=== PATIENT | male | born 1975 | race Caucasian/White ===

== ENCOUNTER 2018-10-08 12:13 | Emergency (ER) | payer OTHER ==
[2018-10-08 12:47] VITALS: BP 124/65; PULSE 93; RESP 18; TEMP 98.2
[2018-10-08] MEDS ORDERED: LIDOCAINE 1% INJ 10MG/ML (20 ML MDV) SQ ONE (13:29)
[2018-10-08] MEDS ORDERED: DIPH,PERTUS(ACELL)TETVAC-LF 0.5 ML VIAL IM ONE (13:29)
--- NOTE | 2018-10-08 13:51 | ED ---
General Adult HPI - General Chief complaint: Head Injury Stated complaint: [facility] - head injury Time Seen by Provider: 10/08/18 13:09 Source: patient, RN notes reviewed, old records reviewed Mode of arrival: ambulatory Limitations: no limitations - History of Present Illness Initial comments: Patient is a 43-year-old male presents for started today with a right eyebrow laceration after a ladder hit his eyebrow is taking off his truck. Patient states this was work-related injury. He denies any loss of consciousness or headache. Patient states that he has no neck pain or injury. He denies any other complaints at this time. His tetanus is not up-to-date. - Related Data Allergies Allergy/AdvReac Type Severity Reaction Status Date / Time No Known Allergies Allergy Verified 10/08/18 12:46 Review of Systems ROS Statement: Those systems with pertinent positive or pertinent negative responses have been documented in the HPI. ROS Other: All systems not noted in ROS Statement are negative. Past Medical History Past Medical History: No Reported History History of Any Multi-Drug Resistant Organisms: None Reported Past Surgical History: No Surgical Hx Reported Past Psychological History: No Psychological Hx Reported Smoking Status: Current every day smoker Past Alcohol Use History: None Reported Past Drug Use History: None Reported General Exam - General Exam Comments Initial Comments: 43-year-old male. Alert and oriented. No significant distress. Limitations: no limitations Head exam: Present: atraumatic, normocephalic, normal inspection Eye exam: Present: normal appearance, PERRL, EOMI. Absent: scleral icterus, conjunctival injection, periorbital swelling ENT exam: Present: normal exam, normal oropharynx, mucous membranes moist, other (She has a 3 cm laceration over the right eyebrow. Extraocular eye movements are intact.) Neck exam: Present: normal inspection. Absent: tenderness, meningismus, lymphadenopathy Respiratory exam: Present: normal lung sounds bilaterally. Absent: respiratory distress, wheezes, rales, rhonchi, stridor Cardiovascular Exam: Present: regular rate, normal rhythm, normal heart sounds. Absent: systolic murmur, diastolic murmur, rubs, gallop, clicks GI/Abdominal exam: Present: soft, normal bowel sounds. Absent: distended, tenderness, guarding, rebound, rigid Extremities exam: Present: normal inspection, full ROM, normal capillary refill. Absent: tenderness, pedal edema, joint swelling, calf tenderness Back exam: Present: normal inspection Neurological exam: Present: alert, oriented X3, CN II-XII intact Psychiatric exam: Present: normal affect, normal mood Skin exam: Present: warm, dry, intact, normal color. Absent: rash Course Vital Signs 10/08/18 12:41 Temperature 98.2 F Pulse Rate 93 Respiratory 18 Rate Blood Pressure 124/65 O2 Sat by Pulse 100 Oximetry Procedures - Laceration Laceration #1 Site: face (Right brow) Size (cm): 3 Description: linear Anesthetic Used: lidocaine 1% Anesthesia Technique: local infiltration Amount (mls): 5 Pre-repair: wound explored, irrigated extensively Type of Sutures: nylon Size of Sutures: 6-0 Number of Sutures: 5 Technique: simple, interrupted Patient Tolerated Procedure: well, no complications Medical Decision Making - Medical Decision Making 43-year-old male presents for is worse today with a laceration over the right eyebrow after a ladder hit him. He is given TD Vaccine. Laceration was closed after thorough irrigation with 5 sutures. Discussed suture care and monitoring for infection.No loss consciousness or no concern for fracture this time. He has no bony tenderness. Patient understands treatment plan will comply. Return parameters were discussed. Disposition Clinical Impression: Eyebrow laceration, Minor head injury Disposition: HOME SELF-CARE Condition: Good Instructions (If sedation given, give patient instructions): Head Injury (ED), Laceration (ED) Additional Instructions: Please return to the emergency room in 5-7 days to have sutures removed. Please leave wound covered for the first 24-48 hours and then leave open to air after that time. Please use clean soap and water to clean the suture area to prevent scabbing over the top of your sutures. Please watch for any signs of infection which may include but not limited to increased pain, swelling, redness, fever or chills. Please return to the emergency room if any signs of infection do occur. Please return to the emergency room for any other concerns or complications. Is patient prescribed a controlled substance at d/c from ED?: No Referrals: Aba Gore MD [Primary Care Provider] - 1-2 days
== END 2018-10-08 14:41 | disposition home or self-care (01) ==
LOC: EC 12:13
DX: S01.111A Laceration without foreign body of right eyelid and periocular area, initial encounter (principal); Z23 Encounter for immunization; F17.200 Nicotine dependence, unspecified, uncomplicated; W22.8XXA Striking against or struck by other objects, initial encounter; Y92.69 Other specified industrial and construction area as the place of occurrence of the external cause; Y99.0 Civilian activity done for income or pay
CPT/HCPCS: 90715; 99283; 12013; 90471; J2001

== ENCOUNTER 2021-03-16 15:24 | Emergency (ER) | payer OTHER ==
[2021-03-16 15:50] VITALS: RESP 20; TEMP 97.8
[2021-03-16] MEDS ORDERED: IBUPROFEN 600 MG TAB PO STA (16:11)
--- NOTE | 2021-03-16 16:19 | ED ---
Upper Extremity HPI - General Chief Complaint: Extremity Injury, Upper Stated Complaint: Hand Injury Time Seen by Provider: 03/16/21 15:52 Source: patient, RN notes reviewed Mode of arrival: ambulatory Limitations: no limitations - History of Present Illness Initial Comments: Patient is a 45-year-old male presenting to the emergency Department with comp laints of injury to his right hand. Patient states a large cement block fell onto his right index finger today at work. He is having some pain at the 2nd MCP joint. He denies any previous injury to his right hand or fingers. He denies any other complaints today. He did not take anything for pain. His vitals are stable. - Related Data Allergies Allergy/AdvReac Type Severity Reaction Status Date / Time No Known Allergies Allergy Verified 03/16/21 15:50 Review of Systems ROS Statement: Those systems with pertinent positive or pertinent negative responses have been documented in the HPI. ROS Other: All systems not noted in ROS Statement are negative. Past Medical History Past Medical History: No Reported History History of Any Multi-Drug Resistant Organisms: None Reported Past Surgical History: No Surgical Hx Reported Past Psychological History: No Psychological Hx Reported Smoking Status: Current every day smoker Past Alcohol Use History: Occasional Past Drug Use History: Marijuana General Exam - General Exam Comments Initial Comments: GENERAL: Patient is well-developed and well-nourished. Patient is nontoxic and in no acute distress. HEAD: Atraumatic, normocephalic. EYES: Pupils equal round and reactive to light, extraocular movements intact, sclera anicteric, conjunctiva are normal. Eyelids were unremarkable. LUNGS: Unlabored respirations. Breath sounds clear to auscultation bilaterally and equal. No wheezes rales or rhonchi. HEART: Regular rate and rhythm without murmurs, rubs or gallops. MUSCULOSKELETAL: Patient has pain and swelling at the second MCP joint, he has limited range of motion secondary to pain. No pain of the right wrist or right proximal hand. He is neurovascular intact. No clubbing or cyanosis. NEUROLOGICAL: Patient is alert and oriented x 3. SKIN: Warm, Dry, normal turgor, no rashes or lesions noted. Limitations: no limitations Course Vital Signs 03/16/21 15:47 Temperature 97.8 F Pulse Rate 76 Respiratory 20 Rate Blood Pressure 134/72 O2 Sat by Pulse 97 Oximetry Medical Decision Making - Medical Decision Making Patient is a 45-year-old male here with injury to his right second digit after a cement block fell onto it. X-rays today reveal no acute fractures or dislocations. Discussed with patient this is most likely a bone contusion. Recommended ice to the area, Tylenol or ibuprofen for any discomfort. He is stable for discharge. If symptoms persist without improvement he can follow-up with orthopedics. He is agreeable to this and is stable for discharge. Disposition Clinical Impression: Contusion of right hand Disposition: HOME SELF-CARE Condition: Stable Instructions (If sedation given, give patient instructions): Contusion in Adults (ED) Additional Instructions: Please return to the Emergency Department if symptoms worsen or any other concerns. Recommend ice to the area, Tylenol or ibuprofen for any discomfort. If symptoms persist without improvement, follow up with your primary care or orthopedics. Is patient prescribed a controlled substance at d/c from ED?: No Referrals: Aba Gore MD [Primary Care Provider] - 1-2 days Time of Disposition: 16:46
--- NOTE | 2021-03-16 16:39 | XR ---
EXAMINATION TYPE: XR hand complete RT DATE OF EXAM: 03/16/2021 COMPARISON: NONE HISTORY: Pain and swelling TECHNIQUE: 3 view FINDINGS: I see no acute fracture nor dislocation. There is some deformity of the fifth metacarpal he ad related to old boxer's fracture. MP joint spaces are fairly normal. Carpal bones are intact. IMPRESSION: No acute abnormality of the right hand.
[2021-03-16 16:57] VITALS: BP 132/74; PULSE 80
== END 2021-03-16 16:56 | disposition home or self-care (01) ==
LOC: EC 15:24
DX: S60.221A Contusion of right hand, initial encounter (principal); F17.200 Nicotine dependence, unspecified, uncomplicated; W20.8XXA Other cause of strike by thrown, projected or falling object, initial encounter; Y99.0 Civilian activity done for income or pay
CPT/HCPCS: 99283

== ENCOUNTER 2022-10-15 15:02 | Inpatient (IN) | payer OTHER ==
[2022-10-15] MEDS ORDERED: ASPIRIN 81 MG PO STA (15:29)
[2022-10-15] MEDS ORDERED: LORazepam 2 MG/ML INJ IV STA (15:29)
--- NOTE | 2022-10-15 15:30 | ED ---
General Adult HPI - General Chief complaint: Chest Pain Stated complaint: CHEST PAINS Time Seen by Provider: 10/15/22 15:15 Source: patient Mode of arrival: ambulatory Limitations: no limitations - History of Present Illness Initial comments: Patient presents to the ED with his for evaluation. Patient states that he developed central chest "pressure" about 1.5 hours ago while at rest. Patient admits to having mild associated dyspnea. Patient also states that he feels "shaky" and his entire body feels "numb". Patient is quite anxious in appea omayra. Patient denies trauma or injury, fever, headache, focal weakness, visual changes, speech difficulty, neck/arm/jaw/back pain, pleuritic pain, cough or cold symptoms, palpitations, dizziness, diaphoresis, nausea/vomiting/diarrhea, bloody or melanotic stool, dysuria or urinary symptoms, decreased urine output, leg or calf swelling or pain, or any other symptoms or complaints. Patient admits to occasional marijuana use. Patient denies any other illicit drug use. - Related Data Home Medications Medication Instructions Recorded Confirmed No Known Home Medications 10/15/22 10/15/22 Allergies Allergy/AdvReac Type Severity Reaction Status Date / Time Penicillins Allergy Rash/Hives Verified 10/15/22 17:52 Review of Systems ROS Statement: Those systems with pertinent positive or pertinent negative responses have been documented in the HPI. ROS Other: All systems not noted in ROS Statement are negative. Past Medical History Past Medical History: No Reported History History of Any Multi-Drug Resistant Organisms: None Reported Past Surgical History: No Surgical Hx Reported Past Psychological History: No Psychological Hx Reported Smoking Status: Current every day smoker Past Alcohol Use History: Occasional Past Drug Use History: Marijuana General Exam Limitations: no limitations General appearance: alert, in no apparent distress Head exam: Present: atraumatic, normocephalic Eye exam: Present: normal appearance, PERRL, EOMI ENT exam: Present: mucous membranes moist Neck exam: Present: other (Trachea is in midline). Absent: tenderness Respiratory exam: Present: normal lung sounds bilaterally. Absent: respiratory distress, wheezes, rales, rhonchi, stridor, chest wall tenderness Cardiovascular Exam: Present: regular rate, normal rhythm, normal heart sounds, other (Normal radial pulses bilaterally) GI/Abdominal exam: Present: soft. Absent: distended, tenderness, guarding Extremities exam: Present: other (Negative Homans sign bilaterally). Absent: tenderness, pedal edema, calf tenderness Back exam: Absent: tenderness Neurological exam: Present: alert, oriented X3, CN II-XII intact. Absent: motor sensory deficit Psychiatric exam: Present: anxious Skin exam: Present: warm, dry, intact, normal color Course Vital Signs 10/15/22 10/15/22 10/15/22 15:04 16:06 17:00 Temperature 97.5 F L Pulse Rate 73 62 57 L Respiratory 20 18 18 Rate Blood Pressure 159/85 153/92 149/86 O2 Sat by Pulse 99 97 99 Oximetry 10/15/22 18:32 Temperature Pulse Rate 52 L Respiratory 18 Rate Blood Pressure 136/82 O2 Sat by Pulse 98 Oximetry - Reevaluation(s) Reevaluation #1: 10/15/22 17:37 Patient states that his chest pain/symptoms have currently resolved, and he denies development of any new symptoms while in the ED. Patient remains alert and breathing comfortably with a normal room air oxygen saturation. Patient and are aware the patient's test results thus far. Patient agrees with obtaining a 2-hour troponin at this time. 10/15/22 18:27 Case, H&P, test results and ED management thus far were discussed with Dr. Watkins (interventional cardiology). He agrees with plan to admit the patient to the hospital, and he agrees to see the patient in consultation. He has no further recommendations at this time. 10/15/22 18:39 Case, H&P, test results, ED management thus far and my discussion with Dr. Watkins as above were discussed with Dr. Badillo. She accepts hospital admission. She has no further recommendations at this time. 10/15/22 18:42 Patient continues to deny having any chest pain/symptoms. Patient remains alert and breathing comfortably with a normal room air oxygen saturation. Patient and are aware the patient's test results, 2-hour troponin level and my discussions as above. Patient agrees with hospital admission at this time. EKG Findings - EKG Comments: EKG Findings:: ED physician interpretation: Normal sinus rhythm, ventricular rate of 68 bpm, no ectopy, normal OH and QRS intervals, normal QT interval, normal axis, no ST or T-wave abnormality Medical Decision Making - Medical Decision Making Was pt. sent in by a medical professional or institution (, [facility], [facility], urgent care, hospital, or [facility]...) When possible be specific @ -No Did you speak to anyone other than the patient for history (EMS, parent, family, police, friend...)? What history was obtained from this source @ -No Did you review nursing and triage notes (agree or disagree)? Why? @ -I reviewed and agree with nursing and triage notes Were old charts reviewed (outside hosp., previous admission, EMS record, old EKG, old radiological studies, urgent care reports/EKG's, [facility] records)? Report findings @ -No old charts were reviewed Differential Diagnosis (chest pain, altered mental status, abdominal pain women, abdominal pain men, vaginal bleeding, weakness, fever, dyspnea, syncope, headache, dizziness, GI bleed, back pain, seizure, CVA, palpatations, mental health, musculoskeletal)? @ -Differential Chest Pain: Stable Angina, Unstable Angina, STEMI, NSTEMI, Aortic Dissection, Pneumothorax, Musculoskeletal, Esophageal Spasm, GERD, pulmonary embolism, this is not meant to be an all-inclusive list. EKG interpreted by me (3pts min.). @ -As above X-rays interpreted by me (1pt min.). @ -I reviewed the patient's chest x-ray myself, and I agree with the radiologist's interpretation as above. CT interpreted by me (1pt min.). @ -None done U/S interpreted by me (1pt. min.). @ -None done What testing was considered but not performed or refused? (CT, X-rays, U/S, labs)? Why? @ -None What meds were considered but not given or refused? Why? @ -None Did you discuss the management of the patient with other professionals (professionals i.e. [facility] Thayer, [facility], lab, RT, psych nurse, child welfare social worker, correctional security officer, teacher, housing officer, onsite case manager)? Give summary @ -As above. Was smoking cessation discussed for >3mins.? @ -No Was critical care preformed (if so, how long)? @ -Yes, 30 minutes. Were there social determinants of health that impacted care today? How? (Homelessness, low income, unemployed, alcoholism, drug addiction, tra nsportation, low edu. Level, literacy, decrease access to med. care, senior living, rehab)? @ -No Was there de-escalation of care discussed even if they declined (Discuss DNR or withdrawal of care, Hospice)? DNR status @ -No What co-morbidities impacted this encounter? (DM, HTN, Smoking, COPD, CAD, Cancer, CVA, ARF, Chemo, Hep., AIDS, mental health diagnosis, sleep apnea, morbid obesity)? @ -Smoking Was patient admitted / discharged? Hospital course, mention meds given and route, prescriptions, significant lab abnormalities, going to OR and other pertinent info. @ -Patient's chest pain/symptoms have improved with administration of IV Ativan in the ED. Patient is no longer anxious/uncomfortable in appearance, and he states that his chest pain/symptoms have completely resolved. Patient's EKG, chest x-ray and initial labs are all fairly unremarkable, including a negative d-dimer and negative troponin. Patient's two-hour troponin, however, is elevated. IV heparin drip has been initiated. Patient and are aware the patient's test results, and patient agrees with hospital admission at this time. Cardiology has been consulted. Dr. Badillo has accepted hospital admission. Undiagnosed new problem with uncertain prognosis? @ -No Drug Therapy requiring intensive monitoring for toxicity (Heparin, Nitro, Insulin, Cardizem)? @ -No Were any procedures done? @ -No Diagnosis/symptom? @ -Chest pain, NSTEMI Acute, or Chronic, or Acute on Chronic? @ -Acute Uncomplicated (without systemic symptoms) or Complicated (systemic symptoms)? @ -Complicated Side effects of treatment? @ -No Exacerbation, Progression, or Severe Exacerbation? @ -No Poses a threat to life or bodily function? How? (Chest pain, USA, PA, pneumonia, PE, COPD, DKA, ARF, appy, cholecystitis, CVA, Diverticulitis, Homicidal, Suicidal, threat to staff... and all critical care pts) @ -There is potential for a threat to life if the patient's myocardial infarction propagates other the patient develops a dysrhythmia. - Lab Data Result diagrams: 10/15/22 15:35 10/15/22 15:35 Lab Results 10/15/22 10/15/22 10/15/22 Range/Units 15:35 15:35 15:35 WBC 8.7 (3.8-10.6) k/uL RBC 4.94 (4.30-5.90) m/uL Hgb 16.6 (13.0-17.5) gm/dL Hct 49.5 (39.0-53.0) % MCV 100.2 H (80.0-100.0) fL MCH 33.5 (25.0-35.0) pg MCHC 33.4 (31.0-37.0) g/dL RDW 13.5 (11.5-15.5) % Plt Count 252 (150-450) k/uL MPV 8.1 Neutrophils % 60 % Lymphocytes % 30 % Monocytes % 7 % Eosinophils % 1 % Basophils % 0 % Neutrophils # 5.2 (1.3-7.7) k/uL Lymphocytes # 2.6 (1.0-4.8) k/uL Monocytes # 0.6 (0-1.0) k/uL Eosinophils # 0.1 (0-0.7) k/uL Basophils # 0.0 (0-0.2) k/uL PT 10.4 (9.0-12.0) sec INR 1.0 (<1.2) APTT 24.6 (22.0-30.0) sec D-Dimer 0.19 (<0.60) mg/L FEU Sodium 141 (137-145) mmol/L Potassium 3.9 (3.5-5.1) mmol/L Chloride 105 (98-107) mmol/L Carbon Dioxide 27 (22-30) mmol/L Anion Gap 9 mmol/L BUN 13 (9-20) mg/dL Creatinine 0.84 (0.66-1.25) mg/dL Est GFR (CKD-EPI)AfAm >90 (>60 ml/min/1.73 sqM) Est GFR (CKD-EPI)NonAf >90 (>60 ml/min/1.73 sqM) Glucose 139 H (74-99) mg/dL Calcium 8.9 (8.4-10.2) mg/dL Magnesium 2.1 (1.6-2.3) mg/dL Total Bilirubin 0.6 (0.2-1.3) mg/dL AST 33 (17-59) U/L ALT 24 (4-49) U/L Alkaline Phosphatase 71 (38-126) U/L Troponin I (0.000-0.034) ng/mL NT-Pro-B Natriuret Pep pg/mL Total Protein 6.8 (6.3-8.2) g/dL Albumin 4.2 (3.5-5.0) g/dL 10/15/22 10/15/22 10/15/22 Range/Units 15:35 15:35 17:42 WBC (3.8-10.6) k/uL RBC (4.30-5.90) m/uL Hgb (13.0-17.5) gm/dL Hct (39.0-53.0) % MCV (80.0-100.0) fL MCH (25.0-35.0) pg MCHC (31.0-37.0) g/dL RDW (11.5-15.5) % Plt Count (150-450) k/uL MPV Neutrophils % % Lymphocytes % % Monocytes % % Eosinophils % % Basophils % % Neutrophils # (1.3-7.7) k/uL Lymphocytes # (1.0-4.8) k/uL Monocytes # (0-1.0) k/uL Eosinophils # (0-0.7) k/uL Basophils # (0-0.2) k/uL PT (9.0-12.0) sec INR (<1.2) APTT (22.0-30.0) sec D-Dimer (<0.60) mg/L FEU Sodium (137-145) mmol/L Potassium (3.5-5.1) mmol/L Chloride (98-107) mmol/L Carbon Dioxide (22-30) mmol/L Anion Gap mmol/L BUN (9-20) mg/dL Creatinine (0.66-1.25) mg/dL Est GFR (CKD-EPI)AfAm (>60 ml/min/1.73 sqM) Est GFR (CKD-EPI)NonAf (>60 ml/min/1.73 sqM) Glucose (74-99) mg/dL Calcium (8.4-10.2) mg/dL Magnesium (1.6-2.3) mg/dL Total Bilirubin (0.2-1.3) mg/dL AST (17-59) U/L ALT (4-49) U/L Alkaline Phosphatase (38-126) U/L Troponin I <0.012 0.394 H* (0.000-0.034) ng/mL NT-Pro-B Natriuret Pep 850 pg/mL Total Protein (6.3-8.2) g/dL Albumin (3.5-5.0) g/dL - Radiology Data Chest x-ray: No acute cardiopulmonary disease/process. Critical Care Time Critical Care Time: Yes Total Critical Care Time: 30 Disposition Clinical Impression: Chest pain, Acute non-ST elevation myocardial infarction (NSTEMI) Disposition: ADMITTED IP TO THIS HOSP Condition: Stable Is patient prescribed a controlled substance at d/c from ED?: No Time of Disposition: 18:40
--- NOTE | 2022-10-15 15:53 | XR ---
EXAMINATION TYPE: XR chest 2V DATE OF EXAM: 10/15/2022 3:42 PM COMPARISON: None TECHNIQUE: XR chest 2V Frontal and lateral views of the chest. CLINICAL INDICATION:Male, 47 years old with history of Chest Pain; FINDINGS: Lungs/Pleura: There is no evidence of pleural effusion, focal consolidation, or pneumothorax. Pulmonary vascularity: Unremarkable. Heart/mediastinum: Cardiomediastinal silhouette is unremarkable. Musculoskeletal: No acute osseous pathology. IMPRESSION: No acute cardiopulmonary disease/process.
[2022-10-15 15:54] LABS: ALT 24 U/L (4-49); AST 33 U/L (17-59); African American GFR (CKD) >90 (>60 ml/min/1.73 sqM); Albumin 4.2 g/dL (3.5-5.0); Alkaline Phosphatase 71 U/L (38-126); Anion Gap 9 mmol/L; Blood Urea Nitrogen 13 mg/dL (9-20); Calcium 8.9 mg/dL (8.4-10.2); Carbon Dioxide 27 mmol/L (22-30); Chloride 105 mmol/L (98-107); Glucose 139 mg/dL (74-99); Magnesium 2.1 mg/dL (1.6-2.3); Non-African American GFR(CKD) >90 (>60 ml/min/1.73 sqM); Potassium 3.9 mmol/L (3.5-5.1); Sodium 141 mmol/L (137-145); Total Bilirubin 0.6 mg/dL (0.2-1.3); Total Protein 6.8 g/dL (6.3-8.2)
[2022-10-15 15:56] LABS: Partial Thromboplastin Time 24.6 sec (22.0-30.0); Prothrombin Time 10.4 sec (9.0-12.0)
[2022-10-15 16:23] LABS: Basophils % (A) 0 %; Eosinophils # (A) 0.1 k/uL (0-0.7); Eosinophils % (A) 1 %; HCT 49.5 % (39.0-53.0); HGB 16.6 gm/dL (13.0-17.5); Lymphocytes # (A) 2.6 k/uL (1.0-4.8); Lymphocytes % (A) 30 %; MCH 33.5 pg (25.0-35.0); MCHC 33.4 g/dL (31.0-37.0); MCV 100.2 fL (80.0-100.0); Mean Platelet Volume 8.1; Monocytes # (A) 0.6 k/uL (0-1.0); Monocytes % (A) 7 %; Neutrophils # (A) 5.2 k/uL (1.3-7.7); Neutrophils % (A) 60 %; Platelet Count 252 k/uL (150-450); RBC 4.94 m/uL (4.30-5.90); RDW 13.5 % (11.5-15.5); WBC 8.7 k/uL (3.8-10.6)
[2022-10-15] MEDS ORDERED: HEPARIN SODIUM 1,000 UN/ML (10ML VL) IV ONE (18:26)
[2022-10-15] MEDS ORDERED: HEPARIN SODIUM 1,000 UN/ML (10ML VL) IV PRN (18:26)
[2022-10-15] MEDS ORDERED: HEPARIN SOD,PORK IN 0.45% NACL 25,000 UNIT in 0.45% NACL 1 250ML.BAG IV SCH (18:30)
[2022-10-15 20:10] LABS: Basophils % (A) 0 %; Eosinophils # (A) 0.1 k/uL (0-0.7); Eosinophils % (A) 1 %; HCT 47.7 % (39.0-53.0); HGB 15.6 gm/dL (13.0-17.5); Lymphocytes # (A) 2.6 k/uL (1.0-4.8); Lymphocytes % (A) 32 %; MCH 33.2 pg (25.0-35.0); MCHC 32.7 g/dL (31.0-37.0); MCV 101.6 fL (80.0-100.0); Mean Platelet Volume 7.5; Monocytes # (A) 0.5 k/uL (0-1.0); Monocytes % (A) 6 %; Neutrophils # (A) 4.7 k/uL (1.3-7.7); Neutrophils % (A) 58 %; Platelet Count 236 k/uL (150-450); RBC 4.69 m/uL (4.30-5.90)
[2022-10-15 20:43] LABS: Prothrombin Time 10.9 sec (9.0-12.0)
[2022-10-15] MEDS ORDERED: NITROGLYCERIN-D5W PMX 50 MG in DEXTROSE/WATER 1 250ML.BAG IV SCH (21:15)
[2022-10-15 21:21] LABS: Partial Thromboplastin Time 123.3 sec (22.0-30.0)
[2022-10-15] MEDS ORDERED: MORPHINE SULFATE 2 MG/ML SYRINGE IVP PRN (21:36)
[2022-10-15] MEDS: ATORVASTATIN 40 MG TAB PO SCH (21:48)
[2022-10-15] MEDS ORDERED: MORPHINE SULFATE 4 MG/ML SYRINGE IVP STA (22:08)
[2022-10-15] MEDS: NITROGLYCERIN-D5W PMX 50 MG in DEXTROSE/WATER 1 250ML.BAG IV SCH (22:15)
[2022-10-15 23:17] LABS: Glucose,Whole Blood 99 mg/dL (70-110)
[2022-10-15 23:42] LABS: Amphetamine Screen,Urine Not Detected (NotDetected); Barbiturate Screen,Urine Not Detected (NotDetected); Benzodiazepines Screen,Urine Detected (NotDetected); Cocaine Screen,Urine Not Detected (NotDetected); Methadone Screen, Urine Not Detected (NotDetected); Opiate Screen,Urine Detected (NotDetected); Oxycodone Screen, Urine Not Detected (NotDetected); Phencyclidine Screen,Urine Not Detected (NotDetected); Tricyclic Antidepressant,Urine Not Detected (NotDetected); Urn Cannabinoid Scrn Detected (NotDetected)
[2022-10-16] MEDS ORDERED: LORazepam 1 MG TAB PO PRN (00:11)
[2022-10-16] MEDS: SODIUM CHLORIDE 0.9% 1,000 ML IV SCH ×2 (00:18→13:37)
--- NOTE | 2022-10-16 00:24 | P.HPIM ---
History of Present Illness H&P Date: 10/15/22 Chief Complaint: chest pain 47 year old male denies any significant past medical history patient coming in for evaluation due to sudden onset of central chest pain , pressure like , 8/10 in severity , non radiating, associated with shortness of breath , started while watching tv doing nothing, he did not take anything for it at home, tried to rest and relax with no improvement ,and his called EMS to get to the ED for evaluation . he denies any associated Palpitation, profuse sweating, dizziness, nausea or vomiting, no recent viral illness, no recent travel or hospital stay , denies any history of blood clots . patient denies any history of cardiac disease, denies any family history of premature CAD. 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 Review of Systems Pertinent positives as noted in HPI. All other systems were reviewed and are negative Past Medical History Past Medical History: No Reported History History of Any Multi-Drug Resistant Organisms: None Reported Past Surgical History: No Surgical Hx Reported Past Psychological History: No Psychological Hx Reported Smoking Status: Current every day smoker Past Alcohol Use History: Occasional Past Drug Use History: Marijuana Medications and Allergies Home Medications Medication Instructions Recorded Confirmed Type No Known Home Medications 10/15/22 10/15/22 History Allergies Allergy/AdvReac Type Severity Reaction Status Date / Time Penicillins Allergy Rash/Hives Verified 10/15/22 17:52 Physical Exam Vitals: Vital Signs Temp Pulse Pulse Resp BP BP Pulse Ox 10/16/22 00:00 56 L 10 L 109/72 95 10/15/22 23:45 98.0 F 65 22 113/77 93 L 10/15/22 23:30 80 19 112/77 91 L 10/15/22 22:53 113/71 10/15/22 22:45 127/73 10/15/22 22:37 108/63 10/15/22 22:34 117/73 10/15/22 22:29 117/73 10/15/22 22:25 109/69 10/15/22 22:17 112/72 10/15/22 22:00 123/74 10/15/22 21:59 122/72 10/15/22 21:50 127/79 10/15/22 21:45 127/75 10/15/22 21:40 132/80 10/15/22 21:34 137/82 10/15/22 21:33 136/77 10/15/22 21:22 51 L 14 128/81 98 10/15/22 19:54 98.5 F 56 L 14 150/89 97 10/15/22 19:23 97.9 F 56 L 18 98 10/15/22 18:32 52 L 18 136/82 98 10/15/22 17:00 57 L 18 149/86 99 10/15/22 16:06 62 18 153/92 97 10/15/22 15:04 97.5 F L 73 20 159/85 99 Intake and Output 10/15/22 10/15/22 10/16/22 14:59 22:59 06:59 Intake Total 39.865 Balance 39.865 Intake: Intake, IV Titration 39.865 Amount Heparin Sod,Pork in 0.45% 39.865 NaCl 25,000 unit In 0.45 % NaCl 1 250ml.bag @ 12 UNITS/KG/HR 9.417 mls/hr IV .Q24H [facility] Rx#: [id number] Other: Voiding Method Urinal Urinal Weight 78.471 kg Constitutional: No acute distress, conversant, pleasant Eyes: Anicteric sclerae, moist conjunctiva, Pupils equal round reactive to light ENMT: NC/AT Oropharynx clear, no erythema, or exudates Neck: Supple, no masses, or JVD No carotid bruits No thyromegaly Lungs: Clear to auscultation Clear to percussion Normal respiratory effort, no accessory muscle use Cardiovascular: Heart regular in rate and rhythm, No murmurs, gallops, or rubs No peripheral edema Abdominal: Soft No tenderness to deep palpation no guarding, rebound or rigidity Abdomen moving with respiration Normoactive bowel sounds No hepatomegaly, No splenomegaly No palpable mass No abdominal wall hernia noted Skin: Normal temperature, tone, texture, turgor No induration No subcutaneous nodules No rash, lesions No ulcers Extremities: No digital cyanosis No clubbing Pedal pulses intact and symmetrical Radial pulses intact and symmetrical No calf tenderness Psychiatric: Alert and oriented to person, place and time Appropriate affect fair judgement Neuro Muscles Strength 5/5 in all 4 extremities Sensation to light touch grossly present throughout Cranial nerves II-XII grossly intact Lymphatics: no palpable cervical or supraclavicular lymph nodes Results CBC & Chem 7: 10/15/22 19:52 10/15/22 15:35 Labs: Abnormal Lab Results - Last 24 Hours (Table) 10/15/22 10/15/22 10/15/22 Range/Units 15:35 15:35 17:42 MCV 100.2 H (80.0-100.0) fL APTT (22.0-30.0) sec Glucose 139 H (74-99) mg/dL Troponin I 0.394 H* (0.000-0.034) ng/mL Urine Opiates Screen (NotDetected) U Benzodiazepines Scrn (NotDetected) U Marijuana (THC) Screen (NotDetected) 10/15/22 10/15/22 10/15/22 Range/Units 19:52 19:52 19:52 MCV 101.6 H (80.0-100.0) fL APTT 123.3 H* (22.0-30.0) sec Glucose (74-99) mg/dL Troponin I 2.090 H* (0.000-0.034) ng/mL Urine Opiates Screen (NotDetected) U Benzodiazepines Scrn (NotDetected) U Marijuana (THC) Screen (NotDetected) 10/15/22 Range/Units 22:54 MCV (80.0-100.0) fL APTT (22.0-30.0) sec Glucose (74-99) mg/dL Troponin I (0.000-0.034) ng/mL Urine Opiates Screen Detected H (NotDetected) U Benzodiazepines Scrn Detected H (NotDetected) U Marijuana (THC) Screen Detected H (NotDetected) Thrombosis Risk Factor Assmnt - Choose All That Apply Any of the Below Risk Factors Present?: Yes Each Factor Represents 1 point: Age 41-60 years, Obesity (BMI >25) Other Risk Factors: No Other congenital or acquired thrombophilia - If yes, enter type in comment: No Thrombosis Risk Factor Assessment Total Risk Factor Score: 2 Thrombosis Risk Factor Assessment Level: Low Risk Assessment and Plan Assessment: 47 year old male smoker, coming in with chest pain , I discussed the case with ED doc, and I accepted the admission for NSTEMI for further cardiac workup and management , with anticipated length of stay > 2 midnights NSTEMI cardiology consult heparin gtt per ACS protocol nitro drip to control chest pain aspirin 325 , then 81 mg daily po atorvastatin 40 mg qhs trend trops , trending up 0.012 --> 0.39 morphine PRN ivp 2 mg q4hrs for chest pain EKG no acute ST changes check lipid profile , A1c, 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
[2022-10-16] MEDS ORDERED: ACETAMINOPHEN TAB 325 MG TAB PO PRN (03:25)
[2022-10-16 04:29] LABS: Basophils % (A) 0 %; Eosinophils # (A) 0.1 k/uL (0-0.7); Eosinophils % (A) 2 %; HCT 43.3 % (39.0-53.0); HGB 14.1 gm/dL (13.0-17.5); Lymphocytes # (A) 2.4 k/uL (1.0-4.8); Lymphocytes % (A) 40 %; MCH 33.3 pg (25.0-35.0); MCHC 32.5 g/dL (31.0-37.0); MCV 102.5 fL (80.0-100.0); Macrocytosis Slight; Mean Platelet Volume 7.5; Monocytes # (A) 0.4 k/uL (0-1.0); Monocytes % (A) 7 %; Neutrophils # (A) 2.9 k/uL (1.3-7.7); Neutrophils % (A) 49 %; Platelet Count 222 k/uL (150-450); RBC 4.22 m/uL (4.30-5.90); RDW 13.1 % (11.5-15.5); WBC 5.9 k/uL (3.8-10.6)
[2022-10-16 04:54] LABS: Partial Thromboplastin Time 48.8 sec (22.0-30.0)
[2022-10-16 05:00] LABS: ALT 21 U/L (4-49); AST 52 U/L (17-59); African American GFR (CKD) >90 (>60 ml/min/1.73 sqM); Alkaline Phosphatase 59 U/L (38-126); Anion Gap 6 mmol/L; Blood Urea Nitrogen 12 mg/dL (9-20); Calcium 7.8 mg/dL (8.4-10.2); Carbon Dioxide 24 mmol/L (22-30); Chloride 109 mmol/L (98-107); Glucose 97 mg/dL (74-99); Non-African American GFR(CKD) >90 (>60 ml/min/1.73 sqM); Potassium 3.4 mmol/L (3.5-5.1); Sodium 139 mmol/L (137-145); Total Bilirubin 0.7 mg/dL (0.2-1.3); Total Protein 5.3 g/dL (6.3-8.2)
[2022-10-16] MEDS ORDERED: Potassium Replacement Protocol 1 EACH MISC MISCELLANE PRN (05:03)
[2022-10-16] MEDS: POTASSIUM CHLORIDE ER 20 MEQ TAB.ER PO SCH ×2 (06:15→07:23)
[2022-10-16] MEDS: ASPIRIN 81 MG PO SCH (08:09)
[2022-10-16 10:47] LABS: Chol/HDL Ratio 2.83 Ratio; LDL Cholesterol,Calculated 77.7 mg/dL (0.0-131.0); VLDL Calculation 14.14 mg/dL (5.00-40.00)
--- NOTE | 2022-10-16 10:55 | P.CRDCN ---
History of Present Illness History of present illness: HISTORY OF PRESENTING ILLNESS This is a pleasant 47-year-old with past medical history significant for tobacco abuse, questionable hyperlipidemia. Patient presented with acute onset of righ t-sided chest pain radiating to his right arm which occurred when he was sitting in his chair watching TV. Pain persisted and therefore presented to the ER. Patient was found to have initially minimally elevated troponins and was given nitro. Per report pain had improved however later talking with the nurse was noted to still be having minimal 1-2 out of 10 chest pain with continued elevated troponins. Therefore he was started on nitro drip glycerin drip as well as given morphine with complete resolution of chest pain. He denies any shortness breath. Denies any recent fevers, chills, cough. He does smoke a pack per day. Occasional marijuana. No cocaine. No family history of CAD. E KG shows sinus rhythm, normal axis, no significant ST or T wave abnormalities. REVIEW OF SYSTEMS At the time of my exam: CONSTITUTIONAL: Denies fever or chills. CARDIOVASCULAR: +chest pain, no shortness of breath, orthopnea, PND or palpitations. RESPIRATORY: Denies cough. GASTROINTESTINAL: Denies abdominal pain, diarrhea, constipation, nausea or vomiting. MUSCULOSKELETAL: Denies myalgias. NEUROLOGIC: Denies numbness, tingling or weakness. ENDOCRINE: Denies fatigue, weight change, polydipsia or polyurina. GENITOURINARY: Denies burning, hematuria or urgency with micturation. HEMATOLOGIC: Denies history of anemia or bleeding. PHYSICAL EXAMINATION Vital signs reviewed. CONSTITUTIONAL: No apparent distress. HEENT: Head is normocephalic. Pupils are equal, round. Sclerae anicteric. Mucous membranes of the mouth are moist. No JVD. No carotid bruit. CHEST EXAMINATION: Lungs are clear to auscultation. No chest wall tenderness is noted on palpation or with deep breathing. HEART EXAMINATION: Regular rate and rhythm. S1, S2 heard. No murmurs, gallops or rub. ABDOMEN: Soft, nontender. Positive bowel sounds. EXTREMITIES: 2+ peripheral pulses, no lower extremity edema and no calf tenderness. NEUROLOGIC EXAMINATION: Patient is awake, alert and oriented x3. ASSESSMENT Non-STEMI, likely type I mechanism Tobacco abuse Occasional marijuana use PLAN Continue heparin drip as well as nitroglycerin with patient currently chest pain-free. Check 2-D echo. Discussed risks and benefits of heart catheterization patient is agreeable. Heart catheterization today with likely PCI if significant disease. Past Medical History Past Medical History: No Reported History History of Any Multi-Drug Resistant Organisms: None Reported Past Surgical History: No Surgical Hx Reported Past Psychological History: No Psychological Hx Reported Smoking Status: Current every day smoker Past Alcohol Use History: Occasional Past Drug Use History: Marijuana Medications and Allergies Home Medications Medication Instructions Recorded Confirmed Type No Known Home Medications 10/15/22 10/15/22 History Allergies Allergy/AdvReac Type Severity Reaction Status Date / Time Penicillins Allergy Rash/Hives Verified 10/15/22 17:52 Physical Exam Vitals: Vital Signs Temp Pulse Pulse Resp BP BP Pulse Ox 10/16/22 09:00 56 L 16 94/64 93 L 10/16/22 08:30 48 L 19 104/67 95 10/16/22 08:00 98.2 F 52 L 13 103/68 96 10/16/22 07:30 48 L 12 95/61 96 10/16/22 07:00 46 L 12 101/65 10/16/22 06:30 43 L 9 L 98/69 95 10/16/22 06:00 51 L 15 100/65 91 L 10/16/22 05:30 54 L 14 109/69 92 L 10/16/22 05:00 52 L 16 111/77 94 L 10/16/22 04:30 49 L 106/67 92 L 10/16/22 04:00 97.6 F 50 L 14 103/62 94 L 10/16/22 03:30 49 L 101/64 93 L 10/16/22 03:00 53 L 15 99/67 92 L 10/16/22 02:30 52 L 13 98/68 94 L 10/16/22 02:00 52 L 102/70 93 L 10/16/22 01:30 50 L 16 106/69 93 L 10/16/22 01:15 73 17 106/72 94 L 10/16/22 01:00 54 L 103/69 97 10/16/22 00:45 56 L 103/73 95 10/16/22 00:30 57 L 16 105/73 94 L 10/16/22 00:15 56 L 13 108/77 95 10/16/22 00:00 56 L 10 L 109/72 95 10/15/22 23:45 98.0 F 65 22 113/77 93 L 10/15/22 23:30 80 19 112/77 91 L 10/15/22 22:53 113/71 10/15/22 22:45 127/73 10/15/22 22:37 108/63 10/15/22 22:34 117/73 10/15/22 22:29 117/73 10/15/22 22:25 109/69 10/15/22 22:17 112/72 10/15/22 22:00 123/74 10/15/22 21:59 122/72 10/15/22 21:50 127/79 10/15/22 21:45 127/75 10/15/22 21:40 132/80 10/15/22 21:34 137/82 10/15/22 21:33 136/77 10/15/22 21:22 51 L 14 128/81 98 10/15/22 19:54 98.5 F 56 L 14 150/89 97 10/15/22 19:23 97.9 F 56 L 18 98 10/15/22 18:32 52 L 18 136/82 98 10/15/22 17:00 57 L 18 149/86 99 10/15/22 16:06 62 18 153/92 97 10/15/22 15:04 97.5 F L 73 20 159/85 99 Intake and Output 10/15/22 10/16/22 10/16/22 22:59 06:59 14:59 Intake Total 39.865 525 377.60 Output Total 150 0 Balance 39.865 375 377.60 Intake: Intake, IV Titration 39.865 525 377.60 Amount Heparin Sod,Pork in 0.45% 39.865 NaCl 25,000 unit In 0.45 % NaCl 1 250ml.bag @ 12 UNITS/KG/HR 9.417 mls/hr IV .Q24H [facility] Rx#: [id number] Nitroglycerin-D5w Pmx 50 152.60 mg In Dextrose/Water 1 250ml.bag @ 50 MCG/MIN 15 mls/hr IV .[id number] [facility] Rx#:[id number] Sodium Chloride 0.9% 1, 525 225 000 ml @ 75 mls/hr IV . [id number] [facility] Rx#:[id number] Oral 0 Output: Urine 150 0 Other: Voiding Method Urinal Urinal Urinal # Voids 1 # Bowel Movements 1 Weight 78.471 kg 74.3 kg Results 10/16/22 04:07 10/16/22 04:07 Cardiac Enzymes 10/15/22 10/15/22 10/15/22 Range/Units 15:35 15:35 17:42 AST 33 (17-59) U/L Troponin I <0.012 0.394 H* (0.000-0.034) ng/mL 10/15/22 10/15/22 10/16/22 Range/Units 19:52 23:15 04:07 AST (17-59) U/L Troponin I 2.090 H* 4.300 H* 5.160 H* (0.000-0.034) ng/mL 10/16/22 Range/Units 04:07 AST 52 (17-59) U/L Troponin I (0.000-0.034) ng/mL Coagulation 10/15/22 10/15/22 10/16/22 Range/Units 15:35 19:52 04:07 PT 10.4 10.9 11.0 (9.0-12.0) sec APTT 24.6 123.3 H* 48.8 H (22.0-30.0) sec Lipids 10/16/22 Range/Units 04:07 Triglycerides 70.70 (0.00-149.00) mg/dL Cholesterol 142.00 (0.00-200.00) mg/dL HDL Cholesterol 50.20 (40.00-60.00) mg/dL Cholesterol/HDL Ratio 2.83 Ratio CBC 10/15/22 10/15/22 10/16/22 Range/Units 15:35 19:52 04:07 WBC 8.7 8.0 5.9 (3.8-10.6) k/uL RBC 4.94 4.69 4.22 L (4.30-5.90) m/uL Hgb 16.6 15.6 14.1 (13.0-17.5) gm/dL Hct 49.5 47.7 43.3 (39.0-53.0) % Plt Count 252 236 222 (150-450) k/uL Comprehensive Metabolic Panel 10/15/22 10/16/22 Range/Units 15:35 04:07 Sodium 141 139 (137-145) mmol/L Potassium 3.9 3.4 L (3.5-5.1) mmol/L Chloride 105 109 H (98-107) mmol/L Carbon Dioxide 27 24 (22-30) mmol/L BUN 13 12 (9-20) mg/dL Creatinine 0.84 0.73 (0.66-1.25) mg/dL Glucose 139 H 97 (74-99) mg/dL Calcium 8.9 7.8 L (8.4-10.2) mg/dL AST 33 52 (17-59) U/L ALT 24 21 (4-49) U/L Alkaline Phosphatase 71 59 (38-126) U/L Total Protein 6.8 5.3 L (6.3-8.2) g/dL Albumin 4.2 3.0 L (3.5-5.0) g/dL Current Medications Generic Name Dose Route Start Last Admin Trade Name Freq PRN Reason Stop Dose Admin Acetaminophen 650 mg 10/16/22 03:25 10/16/22 06:15 Acetaminophen Tab 325 Mg Tab PO 650 mg Q6HR PRN Administration Fever and/ or Pain Aspirin 81 mg 10/16/22 09:00 10/16/22 08:09 Aspirin 81 Mg PO 81 mg DAILY [facility] Administration Atorvastatin Calcium 40 mg 10/15/22 21:45 10/15/22 21:48 Atorvastatin 40 Mg Tab PO 40 mg HS [facility] Administration Heparin Sodium (Porcine) 0 unit 10/15/22 18:26 Heparin Sodium 1,000 Un/Ml (10ml Vl) IV PER PROTOCOL PRN Low PTT Protocol Heparin Sodium/Sodium Chloride 250 mls @ 9.417 mls/hr 10/15/22 18:30 10/15/22 22:48 25,000 unit/ Sodium Chloride IV 9 units/kg/hr .Q24H [facility] 7.062 mls/hr Titration Protocol 12 UNITS/KG/HR Nitroglycerin/Dextrose 50 mg/ 250 mls @ 9 mls/hr 10/15/22 21:15 10/15/22 21:29 IV Solution IV 30 mcg/min .Q24H [facility] 9 mls/hr Administration Protocol 30 MCG/MIN Nitroglycerin/Dextrose 50 mg/ 250 mls @ 15 mls/hr 10/15/22 22:15 10/16/22 08:32 IV Solution IV 50 mcg/min .[id number] [facility] 15 mls/hr Titration Protocol 50 MCG/MIN Sodium Chloride 1,000 mls @ 75 mls/hr 10/16/22 00:15 10/16/22 00:18 Saline 0.9% IV 75 mls/hr .[id number] [facility] Administration Lorazepam 1 mg 10/16/22 00:11 Lorazepam 1 Mg Tab PO Q8HR PRN Agitation or Acute Anxiety Miscellaneous Information 1 each 10/16/22 05:03 Potassium Replacement Protocol 1 Each Misc MISCELLANE DAILY PRN Per Protocol Protocol Morphine Sulfate 2 mg 10/15/22 21:36 Morphine Sulfate 2 Mg/Ml Syringe IVP Q4HR PRN Pain/Discomfort Intake and Output 10/15/22 10/16/22 10/16/22 22:59 06:59 14:59 Intake Total 39.865 525 377.60 Output Total 150 0 Balance 39.865 375 377.60 Intake: Intake, IV Titration 39.865 525 377.60 Amount Heparin Sod,Pork in 0.45% 39.865 NaCl 25,000 unit In 0.45 % NaCl 1 250ml.bag @ 12 UNITS/KG/HR 9.417 mls/hr IV .Q24H [facility] Rx#: [id number] Nitroglycerin-D5w Pmx 50 152.60 mg In Dextrose/Water 1 250ml.bag @ 50 MCG/MIN 15 mls/hr IV .[id number] [facility] Rx#:[id number] Sodium Chloride 0.9% 1, 525 225 000 ml @ 75 mls/hr IV . [id number] [facility] Rx#:[id number] Oral 0 Output: Urine 150 0 Other: Voiding Method Urinal Urinal Urinal # Voids 1 # Bowel Movements 1 Weight 78.471 kg 74.3 kg 10/16/22 04:07 10/16/22 04:07
[2022-10-16 12:04] LABS: Magnesium 2.1 mg/dL (1.6-2.3)
--- NOTE | 2022-10-16 12:52 | P.PN ---
Subjective Progress Note Date: 10/16/22 Patient is a 47-year-old male with no significant past medical history presented to the ED for chest pain. He was noted to have elevated troponin of less than 0.012, 0.394, 2.09, 4.3, 5.16. Patient was started on a heparin drip and nitroglycerin drip and admitted to ICU for further management and cardiology consultation. This was seen and examined this morning. No acute events overnight. Patient re ports no more chest pain. He denies any shortness of breath or palpitations. No nausea or vomiting. No fever or chills. General: non toxic, no distress, appears at stated age Derm: warm, dry Head: atraumatic, normocephalic, symmetric Eyes: EOMI, no lid lag, anicteric sclera Cardiovascular: S1S2 reg, no murmur Lungs: CTA bilateral, no rhonchi, no rales , no accessory muscle use Ext: no gross muscle atrophy, no edema, no contractures Neuro: no focal neuro deficits Psych: Alert, oriented, appropriate affect Non-ST elevation AZ Hypokalemia Tobacco abuse Marijuana abuse Macrocytosis Based on my assessment of this patient, this patient meets a high complexity level of care. Patient has an acute diagnosis of non-ST elevation AZ that poses a threat to life or bodily function. Patient is currently on heparin drip at 12 units per kilogram per hour. Patient also on nitroglycerin drip at 50 mcg/m. Cardiology has been consulted for further management of this patient. Plans for cardiac c atheterization today. Continue aspirin 81 mg by mouth daily, Lipitor 40 mg by mouth at bedtime. He will likely need a beta sherif of discharge. Patient will need to have daily monitor APTT because of the heparin drip. Full code. Heparin drip for DVT prophylaxis. I have reviewed the following loans consultant notes: None. I have reviewed the results of the following tests: CBC shows MCV of 102.5. PTT 48.8. BMP shows potassium of 3.4 and chloride of 109 along with calcium 7.8. Lipid panel shows total cholesterol 142 and LDL 77.7. I have ordered the following tests: Echocardiogram ordered. PTT ordered. I have discussed the care of this patient with the following independent historian: None. I have independently interpreted the following test below: None. I have discussed the management of this patient with the following physician: None. Objective - Vital Signs Vital signs: Vital Signs Temp 98.2 F 10/16/22 08:00 Pulse 56 L 10/16/22 09:00 Resp 16 10/16/22 09:00 BP 94/64 10/16/22 09:00 Pulse Ox 93 L 10/16/22 09:00 FiO2 Intake & Output 10/15/22 10/16/22 10/16/22 18:59 06:59 18:59 Intake Total 564.865 377.60 Output Total 150 0 Balance 414.865 377.60 Weight 78.471 kg 74.3 kg Intake: Intake, IV Titration 564.865 377.60 Amount Heparin Sod,Pork in 0.45% 39.865 NaCl 25,000 unit In 0.45 % NaCl 1 250ml.bag @ 12 UNITS/KG/HR 9.417 mls/hr IV .Q24H [facility] Rx#: [id number] Nitroglycerin-D5w Pmx 50 152.60 mg In Dextrose/Water 1 250ml.bag @ 50 MCG/MIN 15 mls/hr IV .[id number] [facility] Rx#:[id number] Sodium Chloride 0.9% 1, 525 225 000 ml @ 75 mls/hr IV . [id number] [facility] Rx#:[id number] Oral 0 Output: Urine 150 0 Other: Voiding Method Urinal Urinal # Voids 1 # Bowel Movements 1 - Labs CBC & Chem 7: 10/16/22 04:07 10/16/22 11:03 Labs: Abnormal Lab Results - Last 24 Hours (Table) 10/15/22 10/15/22 10/15/22 Range/Units 15:35 15:35 17:42 RBC (4.30-5.90) m/uL MCV 100.2 H (80.0-100.0) fL APTT (22.0-30.0) sec Potassium (3.5-5.1) mmol/L Chloride (98-107) mmol/L Glucose 139 H (74-99) mg/dL Calcium (8.4-10.2) mg/dL Troponin I 0.394 H* (0.000-0.034) ng/mL Total Protein (6.3-8.2) g/dL Albumin (3.5-5.0) g/dL Urine Opiates Screen (NotDetected) U Benzodiazepines Scrn (NotDetected) U Marijuana (THC) Screen (NotDetected) 10/15/22 10/15/22 10/15/22 Range/Units 19:52 19:52 19:52 RBC (4.30-5.90) m/uL MCV 101.6 H (80.0-100.0) fL APTT 123.3 H* (22.0-30.0) sec Potassium (3.5-5.1) mmol/L Chloride (98-107) mmol/L Glucose (74-99) mg/dL Calcium (8.4-10.2) mg/dL Troponin I 2.090 H* (0.000-0.034) ng/mL Total Protein (6.3-8.2) g/dL Albumin (3.5-5.0) g/dL Urine Opiates Screen (NotDetected) U Benzodiazepines Scrn (NotDetected) U Marijuana (THC) Screen (NotDetected) 10/15/22 10/15/22 10/16/22 Range/Units 22:54 23:15 04:07 RBC 4.22 L (4.30-5.90) m/uL MCV 102.5 H (80.0-100.0) fL APTT (22.0-30.0) sec Potassium (3.5-5.1) mmol/L Chloride (98-107) mmol/L Glucose (74-99) mg/dL Calcium (8.4-10.2) mg/dL Troponin I 4.300 H* (0.000-0.034) ng/mL Total Protein (6.3-8.2) g/dL Albumin (3.5-5.0) g/dL Urine Opiates Screen Detected H (NotDetected) U Benzodiazepines Scrn Detected H (NotDetected) U Marijuana (THC) Screen Detected H (NotDetected) 10/16/22 10/16/22 10/16/22 Range/Units 04:07 04:07 04:07 RBC (4.30-5.90) m/uL MCV (80.0-100.0) fL APTT 48.8 H (22.0-30.0) sec Potassium 3.4 L (3.5-5.1) mmol/L Chloride 109 H (98-107) mmol/L Glucose (74-99) mg/dL Calcium 7.8 L (8.4-10.2) mg/dL Troponin I 5.160 H* (0.000-0.034) ng/mL Total Protein 5.3 L (6.3-8.2) g/dL Albumin 3.0 L (3.5-5.0) g/dL Urine Opiates Screen (NotDetected) U Benzodiazepines Scrn (NotDetected) U Marijuana (THC) Screen (NotDetected)
[2022-10-16] MEDS ORDERED: VERAPAMIL 2.5 MG/ML 2 ML AMP ONE (13:23)
[2022-10-16] MEDS ORDERED: fentaNYL (PF) 50 MCG/ML 2 ML AMP ONE (13:23)
[2022-10-16] MEDS ORDERED: HEPARIN SODIUM 1,000 UN/ML (10ML VL) ONE (13:23)
[2022-10-16] MEDS ORDERED: IV FLUID CONTINUATION 800 ML IV ONE (13:25)
[2022-10-16] MEDS ORDERED: MIDAZOLAM 2 MG/2 ML VIAL IV ONE (13:40)
[2022-10-16] MEDS ORDERED: LIDOCAINE 1% INJ 10MG/ML (5 ML VIAL-PF) SQ ONE (13:40)
[2022-10-16] MEDS ORDERED: fentaNYL (PF) 50 MCG/ML 2 ML AMP IV ONE (13:40)
[2022-10-16] MEDS ORDERED: VERAPAMIL SYRINGE (5 MG/10 ML) INTRAARTER ONE (13:42)
[2022-10-16] MEDS ORDERED: HEPARIN SODIUM 1,000 UN/ML (10ML VL) IV ONE (13:49)
[2022-10-16] MEDS ORDERED: IOPAMIDOL-370 200ML BTL INJ ONE (13:56)
--- NOTE | 2022-10-16 14:14 | P.CARDCATH ---
Description of Procedure: PROCEDURES PERFORMED: Left heart catheterization, bilateral coronary angiography, Left ventriculogram INDICATION: Non-STEMI CONSENT:I have discussed the risks, benefits and alternative therapies for the above-mentioned procedure and for both sedation/analgesia as well as necessary blood product administration, if indicated, as they pertain to this patient. The patient has indicated understanding and acceptance of the risks and procedures discussed. PROCEDURE: After the risks, benefits and alternatives of the above mentioned p rocedure explained in detail with the patient, informed consent was obtained. Patient was taken to the catheterization lab and prepped and draped in usual fashion. 1% lidocaine was used to anesthetize the right radial artery. A 6- Ethiopian sheath was placed in the right radial artery using modified Seldinger technique. Left coronary angiography was performed with a 5-Ethiopian JL 3.5 catheter and right coronary angiography was performed with a 5-Ethiopian JR5 catheter in various views. A 5-Ethiopian FR5 catheter was inserted into the left ventricle and pressure measurements were obtained. Next a 6-Ethiopian angled pigtail catheter was inserted left ventricle and left ventriculogram was performed in the MATA projection with power injection. The right radial sheath was removed and a TR band was placed with hemostasis achieved. The patient tolerated the procedure well. Patient was transported back to the post catheterization holding area in stable condition. Conscious Sedation: Patient was monitored under the direct supervision of myself for conscious sedation using Versed and fentanyl for a total duration of 16 minutes HEMODYNAMICS: Aorta: 132/76 LV: 128/5, LVEDP 16 SELECTIVE CORONARY ARTERIOGRAPHY: LEFT MAIN: The left main is a large caliber vessel which bifurcates into the LAD and circumflex. There is no significant stenosis. LEFT ANTERIOR DESCENDING CORONARY ARTERY: LAD is a large caliber vessel which wraps around to the apex. There is no significant stenosis. LEFT CIRCUMFLEX CORONARY ARTERY: Left circumflex is a moderate caliber vessel without significant stenosis. RIGHT CORONARY ARTERY: The right coronary artery is a large caliber vessel which gives off a PDA and PLV branch and is the dominant vessel. There is no significant stenosis. LEFT VENTRICULOGRAM: Normal left ventricular ejection fraction 55% without wall motion abnormalities. No mitral regurgitation FINAL IMPRESSION: 1. Normal coronary arteries as described above. 2. Normal left sided filling pressures 3. Normal left ventricular ejection fraction 55% without wall motion abnormalities PLAN: 1. Aggressive risk factor modification per most recent ACC/AHA guidelines. 2. Non-STEMI may be related to myocarditis without any significant epicardial disease noted. Continue medical therapy with beta sherif as tolerated.
[2022-10-16] MEDS: NITROGLYCERIN-D5W PMX 50 MG in DEXTROSE/WATER 1 250ML.BAG IV SCH (15:40)
[2022-10-16] MEDS: METOPROLOL SUCCINATE (ER) 25 MG TAB.ER.24H PO SCH (15:40)
[2022-10-16] MEDS: ATORVASTATIN 40 MG TAB PO SCH (20:08)
[2022-10-17] MEDS: METOPROLOL SUCCINATE (ER) 25 MG TAB.ER.24H PO SCH (08:56)
[2022-10-17] MEDS: ASPIRIN 81 MG PO SCH (08:56)
--- NOTE | 2022-10-17 09:26 | PN ---
PROGRESS NOTE SUBJECTIVE: This is a 47-year-old gentleman with a [id number] AZ with a troponin as high as 5.1, underwent cardiac cath by Dr. Watkins yesterday from right radial approach, which revealed no significant obstructive CAD, normal LV function by LV-gram. He may have a myocarditis type picture. However, he is feeling better. Resting comfortably. Cath site is clean and dry. Vitals are stable. I am recommending subcu heparin, increase activity and move him to telemetry. Possible discharge tomorrow. Continue statins and beta blockers and aspirin at this time. His clinical picture may be that of myocarditis, but the patient is feeling better. LV function is well preserved. No obstructive CAD. OBJECTIVE: VITAL SIGNS: Stable. NECK: No JVD. HEART: S1, S2 heard normally. LUNGS: Clear. ABDOMEN: Unremarkable. LOWER EXTREMITIES: Unremarkable. Radial cath site is clean and dry. MMODL / IJN: [id number] /
--- NOTE | 2022-10-17 13:40 | P.PN ---
Subjective Progress Note Date: 10/17/22 Patient is a 47-year-old male with no significant past medical history presented to the ED for chest pain. He was noted to have elevated troponin of less than 0.012, 0.394, 2.09, 4.3, 5.16. Patient was started on a heparin drip and nitroglycerin drip and admitted to ICU for further management and cardiology consultation. Cardiac cath was done which showed normal coronaries. Echocardiogram continues to be pending. This was seen and examined this morning. No acute events overnight. Patient reports no more chest pain. He denies any shortness of breath or palpitations. No nausea or vomiting. No fever or chills. He reports a URI 2 months ago. General: non toxic, no distress, appears at stated age Derm: warm, dry Head: atraumatic, normocephalic, symmetric Eyes: EOMI, no lid lag, anicteric sclera Cardiovascular: S1S2 reg, no murmur Lungs: CTA bilateral, no rhonchi, no rales , no accessory muscle use Ext: no gross muscle atrophy, no edema, no contractures Neuro: no focal neuro deficits Psych: Alert, oriented, appropriate affect Elevated troponin Tobacco abuse Marijuana abuse Macrocytosis Resolved: Hypokalemia Based on my assessment of this patient, this patient meets a moderate complexity level of care. Patient has an acute diagnosis of elevated troponin that poses a threat to life or bodily function. Heparin drip and nitroglycerin drip discontinued. Cardiology on board. Cardiac catheterization shows normal coronaries. Continue aspirin 81 mg by mouth daily, Lipitor 40 mg by mouth at bedtime. Started on Metoprolol 12.5 mg PO QD. Echocardiogram pending. As per Cardiology, continue to monitor for one more day. Anticipate DC home tomorrow. Patient would like to be full code. Heparin SQ for DVT prophylaxis. I have reviewed the following leasing sales consultant notes: Cardiac cath 10/16 - normal coronary arteries. I have reviewed the results of the following tests: PTT 25.9. A1c 5.4. I have ordered the following tests: Echocardiogram ordered. BMP ordered and pending. I have discussed the care of this patient with the following independent historian: None. I have independently interpreted the following test below: None. I have discussed the management of this patient with the following physician: None. Objective - Vital Signs Vital signs: Vital Signs Temp 98.1 F 05/01/23 08:00 Pulse 53 L 10/17/22 10:00 Resp 20 10/17/22 10:00 BP 119/76 10/17/22 10:00 Pulse Ox 95 10/17/22 08:00 FiO2 21 10/17/22 08:00 Intake & Output 10/16/22 10/17/22 10/17/22 18:59 06:59 18:59 Intake Total 1802.60 900 75 Output Total 300 1000 650 Balance 1502.60 -100 -575 Intake: IV 200 Intake, IV Titration 1052.60 900 75 Amount Nitroglycerin-D5w Pmx 50 152.60 mg In Dextrose/Water 1 250ml.bag @ 50 MCG/MIN 15 mls/hr IV .[id number] [facility] Rx#:[id number] Sodium Chloride 0.9% 1, 900 900 75 000 ml @ 75 mls/hr IV . [id number] [facility] Rx#:[id number] Oral 550 Output: Urine 300 1000 650 Other: Voiding Method Urinal Urinal Urinal # Voids 1 # Bowel Movements 1 1 - Labs CBC & Chem 7: 10/16/22 04:07 10/16/22 11:03
[2022-10-17] MEDS: SODIUM CHLORIDE 0.9% 1,000 ML IV SCH ×2 (16:30→19:02)
[2022-10-17] MEDS: HEPARIN SODIUM,PORCINE/PF 5,000 UNIT/0.5 ML SYRINGE SQ SCH ×3 (17:21→22:27)
--- NOTE | 2022-10-17 18:27 | CA ---
Transthoracic Echo Report Name: Hernán Rodrigez Age: 47 Gender: M : 1975 Exam Date: 10/17/2022 12:25 Exam Location: [facility] Ht (in): 69 Wt (lb): 163 Ordering Physician: Brain Qureshi MD Attending/Referring Phys: Cloth Napping Supervisor Alex Carvalho RDCS Procedure CPT: Indications: ACS Cardiac Hx: Technical Quality: Fair Contrast 1: Total Dose (mL): Contrast 2: Total Dose (mL): MEASUREMENTS (Male / Female) Normal Values 2D ECHO LV Diastolic Diameter PLAX 4.4 cm 4.2 - 5.9 / 3.9 - 5.3 cm LV Systolic Diameter PLAX 3.4 cm LV Fractional Shortening PLAX 22.4 % IVS Diastolic Thickness 1.5 cm 0.6 - 1.0 / 0.6 - 0.9 cm IVS Systolic Thickness 1.6 cm LVPW Diastolic Thickness 1.4 cm 0.6 - 1.0 / 0.6 - 0.9 cm LVPW Systolic Thickness 1.7 cm LV Relative Wall Thickness 0.7 RV Internal Dim ED PLAX 3.9 cm LVOT Diameter 2.2 cm LA Systolic Diameter LX 3.9 cm 3.0 - 4.0 / 2.7 - 3.8 cm LV Diastolic Volume MOD BP 99.8 cm??? 67 - 155 / 56 - 104 cm??? LV Systolic Volume MOD BP 42.0 cm??? 22 - 58 / 19 - 49 cm??? LV Ejection Fraction MOD BP 57.9 % >= 55 % LV Stroke Volume MOD BP 57.8 cm??? LV Diastolic Volume MOD 4C 75.6 cm??? LV Systolic Volume MOD 4C 28.2 cm??? LV Ejection Fraction MOD 4C 62.7 % LV Stroke Volume MOD 4C 47.4 cm??? LV Diastolic Length 4C 6.2 cm LV Systolic Length 4C 5.0 cm LV Diastolic Volume MOD 2C 105.3 cm??? LV Systolic Volume MOD 2C 46.2 cm??? LV Ejection Fraction MOD 2C 56.1 % LV Stroke Volume MOD 2C 59.1 cm??? LV Diastolic Length 2C 7.8 cm LV Systolic Length 2C 7.0 cm M-MODE Aortic Root Diameter MM 3.6 cm LA Systolic Diameter MM 4.1 cm LA Ao Ratio MM 1.1 MV E Point Septal Separation 0.5 cm AV Cusp Separation MM 2.4 cm DOPPLER AV Peak Velocity 133.5 cm/s AV Peak Gradient 7.1 mmHg LVOT Peak Velocity 113.9 cm/s LVOT Peak Gradient 5.2 mmHg AV Area Cont Eq pk 3.2 cm??? MV Deceleration Boyd 284.2 cm/s??? MR Peak Velocity 535.4 cm/s MR Peak Gradient 114.7 mmHg Mitral E Point Velocity 65.2 cm/s Mitral A Point Velocity 60.0 cm/s Mitral E to A Ratio 1.1 MV Deceleration Time 229.3 ms MV E' Velocity 9.4 cm/s Mitral E to MV E' Ratio 6.9 TR Peak Velocity 145.6 cm/s TR Peak Gradient 8.5 mmHg Right Ventricular Systolic Press 16.5 mmHg PV Peak Velocity 99.1 cm/s PV Peak Gradient 3.9 mmHg FINDINGS Left Ventricle Left ventricular ejection fraction is estimated at 55-60 %. Moderate concentric left ventricular hypertrophy. Left ventricular cavity size normal. Right Ventricle Normal right ventricular size and function. Right Atrium Normal right atrial size. Left Atrium Normal left atrial size. Mitral Valve Mitral valve thickened. No mitral stenosis. Mild mitral regurgitation. Aortic Valve Trileaflet aortic valve. No aortic valve stenosis or regurgitation. Tricuspid Valve Structurally normal tricuspid valve. Mild tricuspid regurgitation. Pulmonic Valve Structurally normal pulmonic valve. Pericardium Normal pericardium. No pericardial effusion. Aorta Normal size aortic root and proximal ascending aorta. CONCLUSIONS 1. Normal left ventricle size and systolic function 2. Mild mitral and tricuspid regurgitation Previewed by: Dr. Katie Nicole MD (Electronically Signed) Final Date: 17 Oct 2022 18:26
[2022-10-17] MEDS: ATORVASTATIN 40 MG TAB PO SCH (21:33)
[2022-10-18] MEDS: SODIUM CHLORIDE 0.9% 1,000 ML IV SCH (06:00)
[2022-10-18 06:39] LABS: African American GFR (CKD) >90 (>60 ml/min/1.73 sqM); Anion Gap 4 mmol/L; Blood Urea Nitrogen 7 mg/dL (9-20); Calcium 8.6 mg/dL (8.4-10.2); Carbon Dioxide 29 mmol/L (22-30); Chloride 105 mmol/L (98-107); Glucose 91 mg/dL (74-99); Non-African American GFR(CKD) >90 (>60 ml/min/1.73 sqM); Potassium 4.1 mmol/L (3.5-5.1); Sodium 138 mmol/L (137-145)
[2022-10-18] MEDS: ASPIRIN 81 MG PO SCH (09:01)
[2022-10-18] MEDS: METOPROLOL SUCCINATE (ER) 25 MG TAB.ER.24H PO SCH (09:01)
[2022-10-18] MEDS: HEPARIN SODIUM,PORCINE/PF 5,000 UNIT/0.5 ML SYRINGE SQ SCH (09:04)
[2022-10-18 09:07] VITALS: BP 119/78; PULSE 75; RESP 17; TEMP 97.6
--- NOTE | 2022-10-18 10:01 | P.DS ---
Providers Date of admission: 10/15/22 18:40 Expected date of discharge: 10/18/22 Attending physician: Juli Badillo DO Consults: 10/15/22 18:36 Consult Physician Urgent Consulting Provider: Iván Watkins Consult Reason/Comments: NSTEMI Do you want consulting provider notified?: Already Contacted Primary care physician: Stated None Hospital Course: Discharge Diagnosis: Type 1 NSTEMI Nicotine dependence Marijuana dependence Macrocytosis Hypokalemia Hospital Course: 47-year-old male with no significant past medical history presented to the ED for chest pain. He was noted to have elevated troponin of less than 0.012, 0.394, 2.09, 4.3, 5.16. Patient was started on a heparin drip and nitroglycerin drip and admitted to ICU for further management and cardiology consultation. Cardiac cath was done which showed normal coronaries. Echocardiogram showed normal LV size and systolic function, mild mitral and tricuspid regurgitation. NSTEMI possibly related to coronary vasospasm in the setting of clean coronary, however cardiology also considering myocarditis. Patient to follow-up with cardiology in 1 week. Currently chest pain-free Patient seen and examined at bedside. Vital signs reviewed and stable. General: nontoxic, no distress, appears at stated age Derm: warm, dry Head: atraumatic, normocephalic, symmetric Eyes: EOMI, no lid lag, anicteric sclera Mouth: no lip lesion, mucus membranes moist Cardiovascular: S1S2 reg, no murmur Lungs: CTA bilateral, no rhonchi, no rales , no accessory muscle use Abdominal: soft, nontender to palpation, no guarding, no appreciable organomegaly Ext: no gross muscle atrophy, no edema, no contractures Neuro: CN II-XI grossly intact, no focal neuro deficits Psych: Alert, oriented, appropriate affect A total of 33 minutes of time were spent preparing this complex discharge summary. Patient was discharged on 10/18/22 at 9:42. Patient Condition at Discharge: Stable Plan - Discharge Summary New Discharge Prescriptions: New Atorvastatin [Lipitor] 40 mg PO HS #90 tab Metoprolol Succinate (ER) [Toprol XL] 12.5 mg PO DAILY #90 tab Aspirin 81 mg PO DAILY #90 tab Discharge Medication List Aspirin 81 mg PO DAILY #90 tab 10/18/22 [Rx] Atorvastatin [Lipitor] 40 mg PO HS #90 tab 10/18/22 [Rx] Metoprolol Succinate (ER) [Toprol XL] 12.5 mg PO DAILY #90 tab 10/18/22 [Rx] Follow up Appointment(s)/Referral(s): Iván Watkins DO [STAFF PHYSICIAN] - 1 Week (Office will call to schedule and appointment. If you do not hear from them in 24 hours, please call them.) Reza Jim DO [STAFF PHYSICIAN] - 1-2 days (Office unable to make this appointment. No record that patient has been seen by Doctor. Patient would be considered a new patient. If follow up is needed patient needs to call office and be seen as a new patient.) None,Stated [Primary Care Provider] - 1-2 days Patient Instructions/Handouts: Chest Pain (ED), Anxiety (ED) Activity/Diet/Wound Care/Special Instructions: Return to the ER immediately should you develop new or worsening pain, increased shortness of breath, a fever, feeling dizzy or faint, vomiting, or new or worsening symptoms. Follow up closely with your primary care provider. Please see your Moderate Needs Teacher. Discharge Disposition: HOME SELF-CARE
--- NOTE | 2022-10-18 13:16 | PN ---
PROGRESS NOTE SUBJECTIVE: This is a 47-year-old gentleman with atypical chest pain, troponin elevation, unremarkable cardiac catheterization without obstructive CAD, normal LV function both by echo and LV-gram, doing well. I am recommending that he can be discharged and see Dr. Watkins in 1 week. Same medical regimen. Medications reviewed. OBJECTIVE: VITAL SIGNS: Stable. NECK: Revealed no JVD or carotid bruit. HEART: S1 and S2 heard normally. LUNGS: Clear. ABDOMEN: Unremarkable. LOWER EXTREMITIES: Unremarkable. Right radial site is clean and dry with a good pulse. MMODL / IJN: [id number] /
== END 2022-10-18 10:28 | disposition home or self-care (01) | DRG 282 ==
LOC: EC 15:02 → 3SCARD 18:40 → 2SICU 23:10
PROVIDERS: ADMIT Internal Medicine; ATTEND Internal Medicine
PROC: B2111ZZ Fluoroscopy of Multiple Coronary Arteries using Low Osmolar Contrast (ICD-10-PCS; 2022-10-16)
PROC: B2151ZZ Fluoroscopy of Left Heart using Low Osmolar Contrast (ICD-10-PCS; 2022-10-16)
PROC: 4A023N7 Measurement of Cardiac Sampling and Pressure, Left Heart, Percutaneous Approach (ICD-10-PCS; principal; 2022-10-16 12:57)
DX: I21.4 Non-ST elevation (NSTEMI) myocardial infarction (principal); D75.89 Other specified diseases of blood and blood-forming organs; E87.6 Hypokalemia; I08.1 Rheumatic disorders of both mitral and tricuspid valves; D64.9 Anemia, unspecified; F17.210 Nicotine dependence, cigarettes, uncomplicated; F12.20 Cannabis dependence, uncomplicated; Z79.899 Other long term (current) drug therapy; Z79.82 Long term (current) use of aspirin; Z88.0 Allergy status to penicillin
CPT/HCPCS: 36415; 71046; 80048; 80053; 80061; 80306; 82607; 82747; 83036; 83735; 83880; 84132; 84443; 84484; 85025; 85379; 85610; 85730; 93005; 93306; 93458; 96365; 96375; 99291

== ENCOUNTER 2023-05-27 09:52 | Emergency (ER) | payer OTHER ==
[2023-05-27 10:13] VITALS: BP 129/86; PULSE 81; RESP 18; TEMP 98.1
--- NOTE | 2023-05-27 10:19 | ED ---
General Adult HPI - General Chief complaint: Extremity Injury, Lower Stated complaint: right big toe injury Time Seen by Provider: 05/27/23 10:10 Source: patient, family, RN notes reviewed, old records reviewed Mode of arrival: ambulatory Limitations: no limitations - History of Present Illness Initial comments: 47-year-old male presenting for evaluation of right great toe injury. Patient had fallen down 2 steps while 4 times a day return to work. Denies any other injury. No ankle pain. No head or neck trauma. It is isolated to the first toe right foot - Related Data Previous Rx's Medication Instructions Recorded Aspirin 81 mg PO DAILY #90 tab 10/18/22 Atorvastatin [Lipitor] 40 mg PO HS #90 tab 10/18/22 Metoprolol Succinate (ER) [Toprol 12.5 mg PO DAILY #90 tab 10/18/22 XL] Allergies Allergy/AdvReac Type Severity Reaction Status Date / Time Penicillins Allergy Rash/Hives Verified 05/27/23 10:10 Review of Systems ROS Statement: Those systems with pertinent positive or pertinent negative responses have been documented in the HPI. ROS Other: All systems not noted in ROS Statement are negative. Past Medical History Past Medical History: Hypertension Additional Past Medical History / Comment(s): NSTEMI 2022 History of Any Multi-Drug Resistant Organisms: None Reported Past Surgical History: No Surgical Hx Reported Additional Past Surgical History / Comment(s): cardiac cath 09/2022 Past Psychological History: No Psychological Hx Reported Smoking Status: Current every day smoker Past Alcohol Use History: Occasional Past Drug Use History: Marijuana General Exam Limitations: no limitations General appearance: alert, in no apparent distress Head exam: Present: atraumatic, normocephalic Eye exam: Present: normal appearance, PERRL ENT exam: Present: normal exam Neck exam: Present: normal inspection. Absent: tenderness, meningismus Respiratory exam: Present: normal lung sounds bilaterally. Absent: respiratory distress Cardiovascular Exam: Present: regular rate, normal rhythm Extremities exam: Present: other (Pain with range of motion of the right great toe lateral angulation, and normal cap refill, distal pulses intact.). Absent: full ROM Neurological exam: Present: alert, oriented X3 Psychiatric exam: Present: normal affect, normal mood Course Vital Signs 05/27/23 10:04 Temperature 98.1 F Pulse Rate 81 Respiratory 18 Rate Blood Pressure 129/86 O2 Sat by Pulse 98 Oximetry Procedures - Orthopedic Splinting/Casting Injury #1 Side: right Lower Extremity Injury Location: toe Lower Extremity Immobilizer: post-op shoe, kiran tape Medical Decision Making - Medical Decision Making Was pt. sent in by a medical professional or institution ([facility], [employer]ST[employer]ER, urgent care, hospital, or senior care...) When possible be specific @ -No Did you speak to anyone other than the patient for history (EMS, parent, family, police, friend...)? What history was obtained from this source @ -No Did you review nursing and triage notes (agree or disagree)? Why? @ -I reviewed and agree with nursing and triage notes Were old charts reviewed (outside hosp., previous admission, EMS record, old EKG, old radiological studies, urgent care reports/EKG's, senior care records)? Report findings @ -No old charts were reviewed Differential Diagnosis (chest pain, altered mental status, abdominal pain women, abdominal pain men, vaginal bleeding, weakness, fever, dyspnea, syncope, headache, dizziness, GI bleed, back pain, seizure, CVA, palpatations, mental health, musculoskeletal)? @ -not applicable EKG interpreted by me (3pts min.). @ -As above X-rays interpreted by me (1pt min.). @ -[Foot x-ray completed showing a proximal phalanx fracture of the first metatarsal right foot. CT interpreted by me (1pt min.). @ -None done U/S interpreted by me (1pt. min.). @ -None done What testing was considered but not performed or refused? (CT, X-rays, U/S, labs)? Why? @ -None What meds were considered but not given or refused? Why? @ -None Did you discuss the management of the patient with other professionals (professionals i.e. [facility], [employer] PV INSTALLER, lab, RT, psych nurse, medical social worker, canvas repairer, teacher, boating safety officer, showcase trimmer)? Give summary @ -No Was smoking cessation discussed for >3mins.? @ -No Was critical care preformed (if so, how long)? @ -No Were there social determinants of health that impacted care today? How? (Homelessness, low income, unemployed, alcoholism, drug addiction, transportation, low edu. Level, literacy, decrease access to med. care, fdc, rehab)? @ -No Was there de-escalation of care discussed even if they declined (Discuss DNR or withdrawal of care, Hospice)? DNR status @ -No What co-morbidities impacted this encounter? (DM, HTN, Smoking, COPD, CAD, Cancer, CVA, ARF, Chemo, Hep., AIDS, mental health diagnosis, sleep apnea, morbid obesity)? @ -None Was patient admitted / discharged? Hospital course, mention meds given and route, prescriptions, significant lab abnormalities, going to OR and other pe rtinent info. @ -[Patient with toe fracture, toe is splinted with kiran tape and patient given postoperative shoe. Follow-up with orthopedics. Undiagnosed new problem with uncertain prognosis? @ -No Drug Therapy requiring intensive monitoring for toxicity (Heparin, Nitro, Insulin, Cardizem)? @ -No Were any procedures done? @ yes, post splinting Diagnosis/symptom? @ -[Great toe fracture right side Acute, or Chronic, or Acute on Chronic? @ -[acute Uncomplicated (without systemic symptoms) or Complicated (systemic symptoms)? @ -default Side effects of treatment? @ -No Exacerbation, Progression, or Severe Exacerbation? @ -No Poses a threat to life or bodily function? How? (Chest pain, [place], MT, pneumonia, PE, COPD, DKA, ARF, appy, cholecystitis, CVA, Diverticulitis, Homicidal, Suicidal, threat to staff... and all critical care pts) @ -No Disposition Clinical Impression: Toe fracture, right Disposition: HOME SELF-CARE Condition: Good Instructions (If sedation given, give patient instructions): Toe Fracture (ED) Is patient prescribed a controlled substance at d/c from ED?: No Referrals: Aba Gore MD [Primary Care Provider] - 1-2 days Antony Weir MD [STAFF PHYSICIAN] - 1-2 days Time of Disposition: 10:58
[2023-05-27] MEDS ORDERED: LIDOCAINE 1% INJ 10MG/ML (20 ML MDV) SQ ONE (10:47)
--- NOTE | 2023-05-27 11:03 | XR ---
EXAMINATION TYPE: XR foot complete RT DATE OF EXAM: 05/27/2023 COMPARISON: NONE HISTORY: 47-year-old male fall and great toe pain TECHNIQUE: 3 views FINDINGS: There is a comminuted fracture involving the first proximal phalangeal head and neck with e xtension to involve the phalangeal shaft. There is depression of the articular surface and angulation deformity. Some additional dorsal angulation is present on the lateral view. IMPRESSION: Comminuted fractured involving the first proximal phalangeal shaft, neck, and head with intra-articul ar extension into the IP joint and articular surface disruption. Some overall dorsal angulation on th e lateral view.
== END 2023-05-27 11:07 | disposition home or self-care (01) ==
LOC: EC 09:52
DX: S92.911A Unspecified fracture of right toe(s), initial encounter for closed fracture (principal); I10 Essential (primary) hypertension; F17.200 Nicotine dependence, unspecified, uncomplicated; F12.90 Cannabis use, unspecified, uncomplicated; Z88.0 Allergy status to penicillin; W10.8XXA Fall (on) (from) other stairs and steps, initial encounter
CPT/HCPCS: 99283

== ENCOUNTER → 2024-04-11 | Outpatient (CLI) | payer OTHER ==
[2024-04-11 16:56] LABS: Basophils % (A) 0 %; Eosinophils # (A) 0.1 k/uL (0-0.7); Eosinophils % (A) 1 %; HCT 48.6 % (39.0-53.0); Lymphocytes # (A) 1.7 k/uL (1.0-4.8); Lymphocytes % (A) 28 %; MCH 33.8 pg (25.0-35.0); MCV 102.2 fL (80.0-100.0); Macrocytosis Slight; Mean Platelet Volume 7.7; Monocytes # (A) 0.6 k/uL (0-1.0); Monocytes % (A) 10 %; Neutrophils # (A) 3.5 k/uL (1.3-7.7); Neutrophils % (A) 58 %; Platelet Count 246 k/uL (150-450); RBC 4.75 m/uL (4.30-5.90); RDW 13.3 % (11.5-15.5)
[2024-04-11 17:08] LABS: ALT 14 U/L (4-49); AST 24 U/L (17-59); African American GFR (CKD) >90 (>60 ml/min/1.73 sqM); Albumin 4.4 g/dL (3.5-5.0); Albumin/Globulin Ratio 1.6; Alkaline Phosphatase 73 U/L (38-126); Anion Gap 4 mmol/L; Blood Urea Nitrogen 20 mg/dL (9-20); Calcium 9.3 mg/dL (8.4-10.2); Carbon Dioxide 27 mmol/L (22-30); Chloride 109 mmol/L (98-107); Creatine Kinase 105 U/L (55-170); Globulin 2.8 g/dL; Glucose 91 mg/dL (74-99); Non-African American GFR(CKD) 79 (>60 ml/min/1.73 sqM); Potassium 4.6 mmol/L (3.5-5.1); Sodium 140 mmol/L (137-145); Total Bilirubin 0.7 mg/dL (0.2-1.3); Total Protein 7.2 g/dL (6.3-8.2)
== END | disposition home or self-care (01) ==
LOC: LABWHC1 15:18
PROVIDERS: ATTEND Nurse Practitioner Family
CPT/HCPCS: 36415; 80053; 82550; 84484; 85025

== ENCOUNTER 2024-04-22 22:06 | Emergency (ER) | payer OTHER ==
[2024-04-22 22:13] VITALS: RESP 18; TEMP 97.6
[2024-04-22 22:37] LABS: Basophils % (A) 1 %; Eosinophils # (A) 0.1 k/uL (0-0.7); Eosinophils % (A) 1 %; HCT 46.9 % (39.0-53.0); HGB 15.5 gm/dL (13.0-17.5); Lymphocytes # (A) 3.1 k/uL (1.0-4.8); Lymphocytes % (A) 39 %; MCH 33.7 pg (25.0-35.0); Macrocytosis Slight; Mean Platelet Volume 7.1; Monocytes # (A) 0.6 k/uL (0-1.0); Monocytes % (A) 7 %; Neutrophils % (A) 50 %; Platelet Count 245 k/uL (150-450); RDW 12.7 % (11.5-15.5); WBC 8.1 k/uL (3.8-10.6)
[2024-04-22 22:52] LABS: ALT 21 U/L (4-49); AST 36 U/L (17-59); African American GFR (CKD) >90 (>60 ml/min/1.73 sqM); Albumin 4.2 g/dL (3.5-5.0); Alkaline Phosphatase 59 U/L (38-126); Anion Gap 6 mmol/L; Blood Urea Nitrogen 14 mg/dL (9-20); Calcium 8.8 mg/dL (8.4-10.2); Carbon Dioxide 26 mmol/L (22-30); Chloride 105 mmol/L (98-107); Glucose 113 mg/dL (74-99); Non-African American GFR(CKD) >90 (>60 ml/min/1.73 sqM); Potassium 3.6 mmol/L (3.5-5.1); Sodium 137 mmol/L (137-145); Total Bilirubin 0.5 mg/dL (0.2-1.3); Total Protein 6.9 g/dL (6.3-8.2)
--- NOTE | 2024-04-22 23:00 | XR ---
EXAMINATION TYPE: XR chest 1V portable DATE OF EXAM: 04/22/2024 COMPARISON: Chest x-ray October 15, 2022 HISTORY: Altered mental status TECHNIQUE: Single frontal view of the chest is obtained. FINDINGS: There is no focal air space opacity, pleural effusion, or pneumothorax seen. The cardiac silhouette size is stable and within normal limits. Overlying EKG leads are redemonstrated. The osse ous structures are intact. IMPRESSION: No acute process. No significant change from prior. [facility], , 04/22/2024 10:58 PM
--- NOTE | 2024-04-22 23:02 | CT ---
EXAMINATION TYPE: CT brain sharee miranda DATE OF EXAM: 04/22/2024 COMPARISON: NONE HISTORY: Patient is coming to facility after a syncopal episode/fall down the stairs. Patient denies thinners and denies LOC. Patient states to have [address] DLP: 1343.1 mGycm. Automated Exposure Control for Dose Reduction was Utilized. TECHNIQUE: CT scan of the head and cervical spine are performed without contrast. FINDINGS: There is no acute intracranial hemorrhage, mass effect, or midline shift identified. The ventricles and sulci are within normal limits in size. Reyna-white matter differentiation is maintain ed. The calvarium is intact. Nasal septum is deviated to right of midline. The globes are intact and the visualized sinuses are clear. Cervical spine is visualized in its entirety from C1 through upper thoracic levels and demonstrates s light scoliotic curvature without evidence of acute fracture or dislocation. Prevertebral soft tissu e appears within normal limits. The C1-C2 articulation is within normal limits on the coronal images . Vertebral body heights are maintained. Mild disc space narrowing with mild to moderate spurring at C6-C7 level is present. Posterior spur disc complex at this level effaces anterior thecal sac. Upper lungs are clear without pneumothorax. IMPRESSION: 1. There is no acute fracture or dislocation evident in the cervical spine. 2. No acute intracranial hemorrhage or midline shift is seen. [facility], , 04/22/2024 11:00 PM
[2024-04-22 23:08] LABS: Alcohol 255 mg/dL
--- NOTE | 2024-04-22 23:40 | ED ---
General Adult HPI - General Chief complaint: Fall Stated complaint: Syncope Time Seen by Provider: 04/22/24 22:10 Source: patient Mode of arrival: EMS - History of Present Illness Initial comments: 48-year-old male with past medical history of hypertension who presents emergency department after he fell down some stairs, appropriately 5 steps. Patient had been drinking at home. heard a loud noise from the other room. She went in to find the patient unconscious on the floor. She did not know if the patient passed out and fell down the stairs or if he fell first and then passed out. It was unknown if the patient hit his head. He then became responsive. called EMS. EMS found the patient to be alert and oriented x 3. He does admit to drinking 5 beers tonight. He denies any pain. He does arrive in a c-collar. He denies headache or visual changes. No neck or back pain. No chest pain or difficulty breathing. No pain in his hips. Patient does answer all questions appropriately. He denies being on any blood thinners. No other alleviating, precipitating or modifying factors - Related Data Previous Rx's Medication Instructions Recorded Aspirin 81 mg PO DAILY #90 tab 10/18/22 Atorvastatin [Lipitor] 40 mg PO HS #90 tab 10/18/22 Metoprolol Succinate (ER) [Toprol 12.5 mg PO DAILY #90 tab 10/18/22 XL] Allergies Allergy/AdvReac Type Severity Reaction Status Date / Time Penicillins Allergy Rash/Hives Verified 04/22/24 22:13 Review of Systems ROS Statement: Those systems with pertinent positive or pertinent negative responses have been documented in the HPI. ROS Other: All systems not noted in ROS Statement are negative. Past Medical History Past Medical History: Hypertension Additional Past Medical History / Comment(s): NSTEMI 2022 History of Any Multi-Drug Resistant Organisms: None Reported Past Surgical History: No Surgical Hx Reported Additional Past Surgical History / Comment(s): cardiac cath 09/2022 Past Psychological History: No Psychological Hx Reported Smoking Status: Current every day smoker Past Alcohol Use History: Occasional Past Drug Use History: Marijuana General Exam Limitations: no limitations General appearance: alert, appears intoxicated Head exam: Present: atraumatic, normocephalic, normal inspection Eye exam: Present: normal appearance, PERRL, EOMI. Absent: scleral icterus, conjunctival injection, periorbital swelling ENT exam: Present: other (Patient does have a laceration noted to the right lateral aspect of the tongue. No flap. No active bleeding) Neck exam: Present: normal inspection, other (C-Collar in place without tenderness). Absent: tenderness, meningismus, lymphadenopathy Respiratory exam: Present: normal lung sounds bilaterally. Absent: respiratory distress, wheezes, rales, rhonchi, stridor Cardiovascular Exam: Present: regular rate, normal rhythm, normal heart sounds. Absent: systolic murmur, diastolic murmur, rubs, gallop, clicks Extremities exam: Present: normal inspection, full ROM, normal capillary refill. Absent: tenderness, pedal edema, joint swelling, calf tenderness Neurological exam: Present: alert, oriented X3, CN II-XII intact Psychiatric exam: Present: normal affect, normal mood Skin exam: Present: abrasion (To the left thumbdorsal aspect. no active bleeding. <1 cm) Course Vital Signs 04/22/24 04/23/24 22:09 00:00 Temperature 97.6 F Pulse Rate 93 76 Respiratory 18 18 Rate Blood Pressure 114/87 119/84 O2 Sat by Pulse 100 100 Oximetry Medical Decision Making - Medical Decision Making Was pt. sent in by a medical professional or institution (, PA, GRAVITY FLOW IRRIGATOR, urgent care, hospital, or long term...) When possible be specific @ -No Did you speak to anyone other than the patient for history (EMS, parent, family, police, friend...)? What history was obtained from this source @ -EMS for history Did you review nursing and triage notes (agree or disagree)? Why? @ -I reviewed and agree with nursing and triage notes Were old charts reviewed (outside hosp., previous admission, EMS record, old EK G, old radiological studies, urgent care reports/EKG's, long term records)? Report findings @ -No old charts were reviewed Differential Diagnosis (chest pain, altered mental status, abdominal pain women, abdominal pain men, vaginal bleeding, weakness, fever, dyspnea, syncope, headache, dizziness, GI bleed, back pain, seizure, CVA, palpatations, mental health, musculoskeletal)? @ -Syncope, fall, blunt head injury, subdural, subarachnoid, alcohol intoxication EKG interpreted by me (3pts min.). @ -Yes and demonstrates sinus rhythm with a rate of 89. MI interval 201. QRS 110. QTc of 407. No acute ST segment elevations or depressions X-rays interpreted by me (1pt min.). @ -Yes and demonstrates no acute process CT interpreted by me (1pt min.). @ -Yes and demonstrates no acute process U/S interpreted by me (1pt. min.). @ -None done What testing was considered but not performed or refused? (CT, X-rays, U/S, labs)? Why? @ -None What meds were considered but not given or refused? Why? @ -None Did you discuss the management of the patient with other professionals (professionals i.e. Dr., PA, GRAVITY FLOW IRRIGATOR, lab, RT, psych nurse, 7th grade social studies teacher, clother in, teacher, security officer, clinical case manager)? Give summary @ -No Was smoking cessation discussed for >3mins.? @ -No Was critical care preformed (if so, how long)? @ -No Were there social determinants of health that impacted care today? How? (Homelessness, low income, unemployed, alcoholism, drug addiction, transportation, low edu. Level, literacy, decrease access to med. care, [facility], rehab)? @ -No Was there de-escalation of care discussed even if they declined (Discuss DNR or withdrawal of care, Hospice)? DNR status @ -No What co-morbidities impacted this encounter? (DM, HTN, Smoking, COPD, CAD, Cancer, CVA, ARF, Chemo, Hep., AIDS, mental health diagnosis, sleep apnea, morbid obesity)? @ -None Was patient admitted / discharged? Hospital course, mention meds given and route, prescriptions, significant lab abnormalities, going to OR and other pertinent info. @ -Upon arrival patient seen and evaluated in room 9. Thorough history and physical exam was performed. Patient did bite his tongue. He has an abrasion to his left hand. Patient denies any pain. He is alert and oriented x 3. I did send the patient for CT of his head and cervical spine. Laboratory studies are conducted. Upon return to the results they are discussed with the patient. His is at bedside. Patient is adamant that he wants to go home. was agreeable to taking him home. States that she will watch him closely. I did inform her that she needs to watch for any new or worsening symptoms including pain. If patient develops any new symptoms when not intoxicated, he will need to be reevaluated. understood this. Patient was given written and verbal discharge instructions and discharged home in stable condition Undiagnosed new problem with uncertain prognosis? @ -No Drug Therapy requiring intensive monitoring for toxicity (Heparin, Nitro, Insulin, Cardizem)? @ -No Were any procedures done? @ -No Diagnosis/symptom? @ -Acute fall downstairs, acute alcohol intoxication, acute tongue laceration Acute, or Chronic, or Acute on Chronic? @ -Acute Uncomplicated (without systemic symptoms) or Complicated (systemic symptoms)? @ -Complicated Side effects of treatment? @ -No Exacerbation, Progression, or Severe Exacerbation? @ -No Poses a threat to life or bodily function? How? (Chest pain, [place], [place], pneumonia, PE, COPD, DKA, ARF, appy, cholecystitis, CVA, Diverticulitis, Homicidal, Suicidal, threat to staff... and all critical care pts) @ -No - Lab Data Result diagrams: 04/22/24 22:23 04/22/24 22:23 Lab Results 04/22/24 04/22/24 04/22/24 Range/Units 22:23 22:23 22:23 WBC 8.1 (3.8-10.6) k/uL RBC 4.60 (4.30-5.90) m/uL Hgb 15.5 (13.0-17.5) gm/dL Hct 46.9 (39.0-53.0) % MCV 102.0 H (80.0-100.0) fL MCH 33.7 (25.0-35.0) pg MCHC 33.0 (31.0-37.0) g/dL RDW 12.7 (11.5-15.5) % Plt Count 245 (150-450) k/uL MPV 7.1 Neutrophils % 50 % Lymphocytes % 39 % Monocytes % 7 % Eosinophils % 1 % Basophils % 1 % Neutrophils # 4.0 (1.3-7.7) k/uL Lymphocytes # 3.1 (1.0-4.8) k/uL Monocytes # 0.6 (0-1.0) k/uL Eosinophils # 0.1 (0-0.7) k/uL Basophils # 0.0 (0-0.2) k/uL Macrocytosis Slight Sodium 137 (137-145) mmol/L Potassium 3.6 (3.5-5.1) mmol/L Chloride 105 (98-107) mmol/L Carbon Dioxide 26 (22-30) mmol/L Anion Gap 6 mmol/L BUN 14 (9-20) mg/dL Creatinine 0.88 (0.66-1.25) mg/dL Est GFR (CKD-EPI)AfAm >90 (>60 ml/min/1.73 sqM) Est GFR (CKD-EPI)NonAf >90 (>60 ml/min/1.73 sqM) Glucose 113 H (74-99) mg/dL Calcium 8.8 (8.4-10.2) mg/dL Total Bilirubin 0.5 (0.2-1.3) mg/dL AST 36 (17-59) U/L ALT 21 (4-49) U/L Alkaline Phosphatase 59 (38-126) U/L Troponin I <0.012 (0.000-0.034) ng/mL Total Protein 6.9 (6.3-8.2) g/dL Albumin 4.2 (3.5-5.0) g/dL Serum Alcohol 255 H* mg/dL Disposition Clinical Impression: Fall down stairs, Alcohol intoxication, Tongue laceration Disposition: HOME SELF-CARE Condition: Stable Instructions (If sedation given, give patient instructions): Fall Prevention (ED) Additional Instructions: I recommend that you follow-up with your primary care doctor in 2 to 4 days for reevaluation of your symptoms. Is patient prescribed a controlled substance at d/c from ED?: No Referrals: Aba Gore MD [Primary Care Provider] - 1-2 days Time of Disposition: 23:40
[2024-04-23 00:17] VITALS: BP 119/84; PULSE 76
== END 2024-04-23 00:05 | disposition home or self-care (01) ==
LOC: EC 22:06
DX: S01.512A Laceration without foreign body of oral cavity, initial encounter (principal); F17.200 Nicotine dependence, unspecified, uncomplicated; F10.129 Alcohol abuse with intoxication, unspecified; Z88.0 Allergy status to penicillin; W10.9XXA Fall (on) (from) unspecified stairs and steps, initial encounter; Y90.8 Blood alcohol level of 240 mg/100 ml or more
CPT/HCPCS: 36415; 70450; 71045; 72125; 80053; 80320; 84484; 85025; 93005; 99284

== ENCOUNTER 2024-08-21 09:14 | Observation (INO) | payer OTHER ==
--- NOTE | 2024-08-21 09:35 | ED ---
General Adult HPI - General Chief complaint: Chest Pain Stated complaint: Chest pain, SOB Time Seen by Provider: 08/21/24 09:26 Source: patient, RN notes reviewed Mode of arrival: ambulatory Limitations: no limitations - History of Present Illness Initial comments: Patient is a 48-year-old male present to the emergency department with concerns with chest discomfort. Patient has been having some mild symptoms for few days, much worse today. Discomfort is currently 8/10. Discomfort feels like pressure in his chest. Patient does have some associated dyspnea. No nausea or vomiting. No diaphoresis. Patient does have history of similar symptoms p reviously associated with previous cardiac disease. Patient has also had cough for the past couple days with occasional green sputum. Patient did see a provider and was given amoxicillin for that. - Related Data Home Medications Medication Instructions Recorded Confirmed Amoxic-Pot Clav 875-125Mg 1 tab PO Q12HR 08/21/24 08/21/24 [Augmentin 875-125] Metoprolol Tartrate [Lopressor] 12.5 mg PO DAILY 08/21/24 08/21/24 predniSONE [Deltasone] 20 mg PO TID 08/21/24 08/21/24 Allergies Allergy/AdvReac Type Severity Reaction Status Date / Time Penicillins Allergy Rash/Hives Verified 08/21/24 09:39 Review of Systems ROS Statement: Those systems with pertinent positive or pertinent negative responses have been documented in the HPI. ROS Other: All systems not noted in ROS Statement are negative. Constitutional: Denies: fever Eyes: Denies: eye pain ENT: Denies: ear pain Respiratory: Reports: as per HPI, cough Cardiovascular: Reports: as per HPI, chest pain Endocrine: Denies: fatigue Gastrointestinal: Denies: abdominal pain Musculoskeletal: Denies: back pain Past Medical History Past Medical History: Coronary Artery Disease (CAD), Hypertension Additional Past Medical History / Comment(s): NSTEMI 2022 History of Any Multi-Drug Resistant Organisms: None Reported Past Surgical History: No Surgical Hx Reported Additional Past Surgical History / Comment(s): cardiac cath 09/2022 Past Psychological History: No Psychological Hx Reported Smoking Status: Current every day smoker Past Alcohol Use History: Occasional Past Drug Use History: Marijuana General Exam Limitations: no limitations General appearance: alert Head exam: Present: normocephalic Eye exam: Present: normal appearance Neck exam: Present: normal inspection Respiratory exam: Present: normal lung sounds bilaterally Cardiovascular Exam: Present: tachycardia Expanded Peripheral pulses: 2+: Radial (R), Radial (L), Posterior Tibialis (R), Posterior Tibialis (L) GI/Abdominal exam: Present: soft. Absent: tenderness Extremities exam: Present: normal inspection. Absent: pedal edema, calf tenderness Neurological exam: Present: alert Psychiatric exam: Present: normal affect, normal mood Skin exam: Present: normal color Course Vital Signs 08/21/24 08/21/24 08/21/24 09:17 09:45 10:28 Temperature 97.7 F Pulse Rate 134 H 101 H 80 Respiratory 24 26 H 28 H Rate Blood Pressure 151/81 115/78 83/57 O2 Sat by Pulse 98 99 97 Oximetry 08/21/24 10:36 Temperature Pulse Rate 63 Respiratory 18 Rate Blood Pressure 105/71 O2 Sat by Pulse 98 Oximetry EKG Findings - EKG Results: EKG: interpreted by BARBARAD (Q wave V1 V2. Nonspecific ST-T.), sinus rhythm, normal axis EKG shows: tachycardia Medical Decision Making - Medical Decision Making Was pt. sent in by a medical professional or institution (, PA, PRINTER TECHNICIAN, urgent care, hospital, or shelter...) When possible be specific @ -No Did you speak to anyone other than the patient for history (EMS, parent, family, police, friend...)? What history was obtained from this source @ -Family is present helps provide history including onset Did you review nursing and triage notes (agree or disagree)? Why? @ -I reviewed and agree with nursing and triage notes Were old charts reviewed (outside hosp., previous admission, EMS record, old EKG, old radiological studies, urgent care reports/EKG's, shelter records)? Report findings @ -No old charts were reviewed Differential Diagnosis (chest pain, altered mental status, abdominal pain women, abdominal pain men, vaginal bleeding, weakness, fever, dyspnea, syncope, headache, dizziness, GI bleed, back pain, seizure, CVA, palpatations, mental health, musculoskeletal)? @ -Differential Chest Pain: Stable Angina, Unstable Angina, STEMI, NSTEMI Aortic Dissection, Pneumothorax, Musculoskeletal, Esophageal Spasm GERD, Cholecystitis, Pancreatitis, Zoster, thi s is not meant to be an all-inclusive list. EKG interpreted by me (3pts min.). @ -EKG #2 also interpreted by myself shows sinus bradycardia with a rate of 54. Normal axis. Normal QRS. No acute ST change. X-rays interpreted by me (1pt min.). @ -Chest x-ray shows no acute process CT interpreted by me (1pt min.). @ -CT scan of the chest ordered e U/S interpreted by me (1pt. min.). @ -None done What testing was considered but not performed or refused? (CT, X-rays, U/S, labs)? Why? @ -CT scan of the chest ordered What meds were considered but not given or refused? Why? @ -None Did you discuss the management of the patient with other professionals (professionals i.e. , PA, PRINTER TECHNICIAN, lab, RT, psych nurse, social media marketing specialist, county sheriff, teacher, sheriff officer, pillowcase turner)? Give summary @ -Dr. Gore paged for admission of this patient Was smoking cessation discussed for >3mins.? @ -No Was critical care preformed (if so, how long)? @ -No Were there social determinants of health that impacted care today? How? (Homelessness, low income, unemployed, alcoholism, drug addiction, transportat ion, low edu. Level, literacy, decrease access to med. care, residential, rehab)? @ -No Was there de-escalation of care discussed even if they declined (Discuss DNR or withdrawal of care, Hospice)? DNR status @ -No What co-morbidities impacted this encounter? (DM, HTN, Smoking, COPD, CAD, Cancer, CVA, ARF, Chemo, Hep., AIDS, mental health diagnosis, sleep apnea, morbid obesity)? @ -History of cardiac disease Was patient admitted / discharged? Hospital course, mention meds given and route, prescriptions, significant lab abnormalities, going to OR and other pertinent info. @ -Patient presents with chest discomfort. Patient did have an episode of increased discomfort were nurse did notice heart rate in the 40s and hypotension and frequent PVCs on the monitor. This has resolved on reassessment however patient still has some discomfort. Patient now adds there is some discomfort in the back. What so I ordered FFP and given just to her what the patient is once last night. Here through his breathing gets worse go ahead and do light BiPAP because it does not look like fluid I CT scan of the chest ordered as well as repeat EKG and morphine. Patient reevaluated and updated. Patient will be admitted with cardiac consult. Admission orders written. Undiagnosed new problem with uncertain prognosis? @ -No Drug Therapy requiring intensive monitoring for toxicity (Heparin, Nitro, Insulin, Cardizem)? @ -No Were any procedures done? @ -No Diagnosis/symptom? @ -Chest pain Acute, or Chronic, or Acute on Chronic? @ -Acute Uncomplicated (without systemic symptoms) or Complicated (systemic symptoms)? @ -Default Side effects of treatment? @ -No Exacerbation, Progression, or Severe Exacerbation? @ -No Poses a threat to life or bodily function? How? (Chest pain, [place], [place], pneumonia, PE, COPD, DKA, ARF, appy, cholecystitis, CVA, Diverticulitis, Homicidal, Suicidal, threat to staff... and all critical care pts) @ -Threat to cardiac function - Lab Data Result diagrams: 08/21/24 09:34 08/21/24 09:34 Lab Results 08/21/24 08/21/24 08/21/24 Range/Units 09:34 09:34 09:34 WBC 12.6 H (3.8-10.6) k/uL RBC 5.04 (4.30-5.90) m/uL Hgb 16.9 (13.0-17.5) gm/dL Hct 52.6 (39.0-53.0) % MCV 104.5 H (80.0-100.0) fL MCH 33.5 (25.0-35.0) pg MCHC 32.1 (31.0-37.0) g/dL RDW 13.0 (11.5-15.5) % Plt Count 283 (150-450) k/uL MPV 7.8 Neutrophils % 77 % Lymphocytes % 15 % Monocytes % 6 % Eosinophils % 0 % Basophils % 0 % Neutrophils # 9.7 H (1.3-7.7) k/uL Lymphocytes # 1.8 (1.0-4.8) k/uL Monocytes # 0.8 (0-1.0) k/uL Eosinophils # 0.0 (0-0.7) k/uL Basophils # 0.0 (0-0.2) k/uL Macrocytosis Slight PT 11.5 (10.0-12.5) sec INR 1.0 (<1.2) APTT 22.6 (22.0-30.0) sec D-Dimer 0.19 (<0.60) mg/L FEU Sodium 137 (137-145) mmol/L Potassium 4.4 (3.5-5.1) mmol/L Chloride 108 H (98-107) mmol/L Carbon Dioxide 16 L (22-30) mmol/L Anion Gap 13 mmol/L BUN 16 (9-20) mg/dL Creatinine 0.92 (0.66-1.25) mg/dL Est GFR (CKD-EPI)AfAm >90 (>60 ml/min/1.73 sqM) Est GFR (CKD-EPI)NonAf >90 (>60 ml/min/1.73 sqM) Glucose 142 H (74-99) mg/dL Calcium 9.5 (8.4-10.2) mg/dL Magnesium 2.0 (1.6-2.3) mg/dL Total Bilirubin 0.6 (0.2-1.3) mg/dL AST 23 (17-59) U/L ALT 17 (4-49) U/L Alkaline Phosphatase 76 (38-126) U/L Troponin I (0.000-0.034) ng/mL NT-Pro-B Natriuret Pep 1340 pg/mL Total Protein 7.1 (6.3-8.2) g/dL Albumin 4.4 (3.5-5.0) g/dL Influenza Type A (PCR) (Not Detectd) Influenza Type B (PCR) (Not Detectd) RSV (PCR) (Not Detectd) SARS-CoV-2 (PCR) (Not Detectd) 08/21/24 08/21/24 Range/Units 09:34 09:34 WBC (3.8-10.6) k/uL RBC (4.30-5.90) m/uL Hgb (13.0-17.5) gm/dL Hct (39.0-53.0) % MCV (80.0-100.0) fL MCH (25.0-35.0) pg MCHC (31.0-37.0) g/dL RDW (11.5-15.5) % Plt Count (150-450) k/uL MPV Neutrophils % % Lymphocytes % % Monocytes % % Eosinophils % % Basophils % % Neutrophils # (1.3-7.7) k/uL Lymphocytes # (1.0-4.8) k/uL Monocytes # (0-1.0) k/uL Eosinophils # (0-0.7) k/uL Basophils # (0-0.2) k/uL Macrocytosis PT (10.0-12.5) sec INR (<1.2) APTT (22.0-30.0) sec D-Dimer (<0.60) mg/L FEU Sodium (137-145) mmol/L Potassium (3.5-5.1) mmol/L Chloride (98-107) mmol/L Carbon Dioxide (22-30) mmol/L Anion Gap mmol/L BUN (9-20) mg/dL Creatinine (0.66-1.25) mg/dL Est GFR (CKD-EPI)AfAm (>60 ml/min/1.73 sqM) Est GFR (CKD-EPI)NonAf (>60 ml/min/1.73 sqM) Glucose (74-99) mg/dL Calcium (8.4-10.2) mg/dL Magnesium (1.6-2.3) mg/dL Total Bilirubin (0.2-1.3) mg/dL AST (17-59) U/L ALT (4-49) U/L Alkaline Phosphatase (38-126) U/L Troponin I <0.012 (0.000-0.034) ng/mL NT-Pro-B Natriuret Pep pg/mL Total Protein (6.3-8.2) g/dL Albumin (3.5-5.0) g/dL Influenza Type A (PCR) Not Detected (Not Detectd) Influenza Type B (PCR) Not Detected (Not Detectd) RSV (PCR) Not Detected (Not Detectd) SARS-CoV-2 (PCR) Not Detected (Not Detectd) Disposition Clinical Impression: Chest pain Disposition: ADMITTED IP TO THIS HOSP Is patient prescribed a controlled substance at d/c from ED?: No Referrals: Aba Gore MD [Primary Care Provider] - 1-2 days Time of Disposition: 10:44
[2024-08-21] MEDS: NITROGLYCERIN SL TABS 0.4 MG TAB SUBLINGUAL STA ×3 (09:36→09:50)
[2024-08-21] MEDS: ASPIRIN 81 MG PO STA (09:36)
[2024-08-21 09:44] LABS: Basophils % (A) 0 %; Eosinophils % (A) 0 %; HCT 52.6 % (39.0-53.0); HGB 16.9 gm/dL (13.0-17.5); Lymphocytes # (A) 1.8 k/uL (1.0-4.8); Lymphocytes % (A) 15 %; MCH 33.5 pg (25.0-35.0); MCHC 32.1 g/dL (31.0-37.0); MCV 104.5 fL (80.0-100.0); Macrocytosis Slight; Mean Platelet Volume 7.8; Monocytes # (A) 0.8 k/uL (0-1.0); Monocytes % (A) 6 %; Neutrophils # (A) 9.7 k/uL (1.3-7.7); Neutrophils % (A) 77 %; Platelet Count 283 k/uL (150-450); RBC 5.04 m/uL (4.30-5.90); WBC 12.6 k/uL (3.8-10.6)
[2024-08-21 09:59] LABS: ALT 17 U/L (4-49); AST 23 U/L (17-59); African American GFR (CKD) >90 (>60 ml/min/1.73 sqM); Albumin 4.4 g/dL (3.5-5.0); Alkaline Phosphatase 76 U/L (38-126); Anion Gap 13 mmol/L; Blood Urea Nitrogen 16 mg/dL (9-20); Calcium 9.5 mg/dL (8.4-10.2); Carbon Dioxide 16 mmol/L (22-30); Chloride 108 mmol/L (98-107); Glucose 142 mg/dL (74-99); Non-African American GFR(CKD) >90 (>60 ml/min/1.73 sqM); Potassium 4.4 mmol/L (3.5-5.1); Sodium 137 mmol/L (137-145); Total Bilirubin 0.6 mg/dL (0.2-1.3); Total Protein 7.1 g/dL (6.3-8.2)
[2024-08-21 10:00] LABS: Partial Thromboplastin Time 22.6 sec (22.0-30.0); Prothrombin Time 11.5 sec (10.0-12.5)
[2024-08-21 10:07] LABS: NT-Pro-B-Type Natriuretic Pept 1340 pg/mL
--- NOTE | 2024-08-21 10:08 | XR ---
EXAMINATION TYPE: XR chest 2V DATE OF EXAM: 08/21/2024 10:05 AM COMPARISON: Chest radiographs from 04/22/2024 TECHNIQUE: XR chest 2V Frontal and lateral views of the chest. CLINICAL INDICATION:Male, 48 years old with history of Chest Pain; FINDINGS: Lungs/Pleura: There is no evidence of pleural effusion, focal consolidation, or pneumothorax. Pulmonary vascularity: Unremarkable. Heart/mediastinum: Cardiomediastinal silhouette is unremarkable. Musculoskeletal: No acute osseous pathology. IMPRESSION: No acute cardiopulmonary disease/process. [facility], , 08/21/2024 10:05 AM
[2024-08-21 10:21] LABS: Influenza A Not Detected (Not Detectd); Influenza B Not Detected (Not Detectd); RSV Not Detected (Not Detectd)
[2024-08-21] MEDS: MORPHINE SULFATE 4 MG/ML SYRINGE IVP STA (10:39)
[2024-08-21] MEDS ORDERED: NITROGLYCERIN SL TABS 0.4 MG TAB SUBLINGUAL PRN (10:44)
[2024-08-21] MEDS: NITROGLYCERIN OINT 1 INCH/GM PACKET TOPICAL SCH (11:16)
--- NOTE | 2024-08-21 11:32 | CT ---
EXAMINATION TYPE: CT angio thor/abd CT DLP: 767.7 mGycm, Automated exposure control for dose reduction was used. DATE OF EXAM: 08/21/2024 11:18 AM COMPARISON: Chest radiograph 08/21/2024. CLINICAL INDICATION:Male, 48 years old with history of cp; PHH, Chest pain, hx of CA. TECHNIQUE: Dissection protocol: Multiple axial CT images of the chest and abdomen were obtained prior and to the administration of IV contrast. 3-D reformats and maximum intensity projection format were performed on a separate workstation. Then the abdomen was scanned after administration of 100 cc of Isovue 370 IV contrast. FINDINGS: ARTERIAL VASCULATURE: Aneurysm dilatation of the aortic root measuring up to 4.0 cm. The remaining ao rta is normal in course and caliber. There is no evidence of aortic dissection, aneurysm or acute aor tic injury. Great arch vessels patent and normal in course and caliber. Mild atherosclerotic calcific ation of the abdominal aorta. The celiac axis, SMA, and bilateral single renal arteries are widely pa tent. The DOROTHEA is widely patent. The visualized bilateral common iliac arteries are widely patent. The bilateral internal and external visualized arteries are widely patent. PULMONARY ARTERIAL VASCULATURE: Normal caliber. No evidence of filling defect to suggest pulmonary em bolus. Lungs/pleura: Biapical pleural-parenchymal scarring. Mild paraseptal and centrilobular emphysematous changes. No pleural effusion, pneumothorax, focal consolidation. No suspicious pulmonary nodule or ma ss. Heart: Size within normal limits.Coronary calcifications. No pericardial effusion Mediastinum: No evidence of adenopathy. Lower Neck: No significant findings. Abdomen: Liver: Unremarkable. Gallbladder and Bile ducts: Unremarkable. Pancreas: Unremarkable. Spleen: Unremarkable. Adrenal glands: Unremarkable. Kidneys and Ureters: Unremarkable. No hydronephrosis. Stomach and Bowel: Small hiatal hernia. No visualized focal bowel wall thickening or surrounding inf lammatory changes. No evidence of bowel obstruction. Peritoneum: No evidence of pneumoperitoneum, free fluid, or adenopathy. Few nonenlarged periportal c alcified lymph nodes. Bladder: Unremarkable. Reproductive: Unremarkable. Abdominal wall/soft tissues: Small fat filled umbilical hernia. Musculoskeletal: The osseous structures appear intact. Mild dextrocurvature of the thoracolumbar spin e. IMPRESSION: 1. No evidence for aortic dissection or acute process within the chest or abdomen. 2. 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 3. Mild emphysematous changes. [facility], , 08/21/2024 11:30 AM
--- NOTE | 2024-08-21 14:00 | P.CRDCN ---
History of Present Illness Consult date: 08/21/24 Consult reason: chest pain History of present illness: This is a 48-year-old male with past medical history of hypertension, tobacco use and dependence We have been asked to evaluate the patient for chest pain. Patient states that he developed chest pain in the middle of his chest with no radiation. He denies shortness of breath, palpitations, dizziness or syncopal episodes. Is been going on and off for the past 3 days and last for only a brief amount of time when it occurs. He states he currently has the pain is in the front of his ch est and in the back as well. He states is just sitting there. Is not worse with deep breathing. He also gives history that he is under treatment for bronchitis and received prescriptions from his PCP for this. He states he is normally quite active at work. He is a active smoker. Blood pressure 122/65, heart rate 75, pulse ox 90% on room air. Patient has been started on Nitropaste, aspirin. -EKG: Sinus rhythm with no acute ST-T wave changes. -Chest x-ray: No acute process. -CTA of the thorax and abdomen: No aortic dissection or acute process within the chest or abdomen. Aortic root aneurysm dilatation measuring 4 cm. Mild emphysematous changes. -Laboratory studies: WBC 12.6, BUN 16 creatinine 0.92, potassium 4.4. Troponin negative x 2. proBNP 1340. Cepheid viral panel not detected. -Home cardiac medications: Metoprolol tartrate 12.5 mg daily which she has not taken since August 13. -Echocardiogram performed 10/17/2022 revealed normal left ventricular size and systolic function. Mild mitral and tricuspid regurgitation. -Cardiac catheterization performed 10/16/[address] Watkins revealed normal coronary arteries, normal left-sided filling pressures, EF 55% without wall motion abnormalities. Review Of Systems: At the time of my exam: CONSTITUTIONAL: Denies fever or chills. HEENT: Denies blurred vision, vision changes, or eye pain. Denies hemoptysis CARDIOVASCULAR: Reports chest pain. Denies orthopnea. Denies PND. Denies palpitations RESPIRATORY: Denies shortness of breath. GASTROINTESTINAL: Denies abdominal pain. Denies nausea or vomiting. HEMATOLOGIC: Denies bleeding disorders. GENITOURINARY: Denies any blood in urine. SKIN: Denies puritis. Denies rash. Physical examination: Gen: This is a 48-year-old male in no acute distress VS: reviewed HEENT: Head is atraumatic, normocephalic. Pupils equal, round. Sclerae is anicteric. NECK: Supple. No JVD. LUNGS: Clear to auscultation. No wheezes or rhonchi. No intercostal retractions. HEART: Regular rate and rhythm. No murmur. ABDOMEN: Soft No tenderness. EXTREMITIES: No pedal edema. No calf tenderness. NEUROLOGICAL: Patient is awake, alert and oriented x3. Assessment: Atypical chest pain Hypertension History of previous cardiac workup with a normal cardiac cath Tobacco use and dependence Plan: Resume patient's home cardiac medications Schedule patient for stress echocardiogram tomorrow Discontinue beta-sherif for stress test tomorrow N.p.o. after midnight Obtain 2-D echocardiogram and Doppler study to assess cardiac structure and function If testing is unremarkable, patient is cleared for discharge from cardiology. Thank you kindly for this consultation. Nurse practitioner note has been reviewed, I agree with documented findings and plan of care. Patient was seen and examined. Past Medical History Past Medical History: Coronary Artery Disease (CAD), Hypertension Additional Past Medical History / Comment(s): NSTEMI 2022 History of Any Multi-Drug Resistant Organisms: None Reported Past Surgical History: No Surgical Hx Reported Additional Past Surgical History / Comment(s): cardiac cath 09/2022 Past Psychological History: No Psychological Hx Reported Smoking Status: Current every day smoker Past Alcohol Use History: Occasional Past Drug Use History: Marijuana Medications and Allergies Home Medications Medication Instructions Recorded Confirmed Type Amoxic-Pot Clav 875-125Mg 1 tab PO Q12HR 08/21/24 08/21/24 History [Augmentin 875-125] Metoprolol Tartrate [Lopressor] 12.5 mg PO DAILY 08/21/24 08/21/24 History predniSONE [Deltasone] 20 mg PO TID 08/21/24 08/21/24 History Allergies Allergy/AdvReac Type Severity Reaction Status Date / Time Penicillins Allergy Rash/Hives Verified 08/21/24 09:39 Physical Exam Vitals: Vital Signs Temp Pulse Resp BP Pulse Ox 08/21/24 10:41 75 28 H 122/65 98 08/21/24 10:36 63 18 105/71 98 08/21/24 10:28 80 28 H 83/57 97 08/21/24 09:45 101 H 26 H 115/78 99 08/21/24 09:17 97.7 F 134 H 24 151/81 98 Intake and Output 08/20/24 08/21/24 08/21/24 22:59 06:59 14:59 Other: Weight 71.668 kg Results 08/21/24 09:34 08/21/24 09:34 Cardiac Enzymes 08/21/24 08/21/24 08/21/24 Range/Units 09:34 09:34 11:50 AST 23 (17-59) U/L Troponin I <0.012 0.028 (0.000-0.034) ng/mL Coagulation 08/21/24 Range/Units 09:34 PT 11.5 (10.0-12.5) sec APTT 22.6 (22.0-30.0) sec CBC 08/21/24 Range/Units 09:34 WBC 12.6 H (3.8-10.6) k/uL RBC 5.04 (4.30-5.90) m/uL Hgb 16.9 (13.0-17.5) gm/dL Hct 52.6 (39.0-53.0) % Plt Count 283 (150-450) k/uL Comprehensive Metabolic Panel 08/21/24 Range/Units 09:34 Sodium 137 (137-145) mmol/L Potassium 4.4 (3.5-5.1) mmol/L Chloride 108 H (98-107) mmol/L Carbon Dioxide 16 L (22-30) mmol/L BUN 16 (9-20) mg/dL Creatinine 0.92 (0.66-1.25) mg/dL Glucose 142 H (74-99) mg/dL Calcium 9.5 (8.4-10.2) mg/dL AST 23 (17-59) U/L ALT 17 (4-49) U/L Alkaline Phosphatase 76 (38-126) U/L Total Protein 7.1 (6.3-8.2) g/dL Albumin 4.4 (3.5-5.0) g/dL Current Medications Generic Name Dose Route Start Last Admin Trade Name Freq PRN Reason Stop Dose Admin Aspirin 325 mg 08/22/24 09:00 Aspirin 325 Mg Tab PO DAILY [facility] Metoprolol Tartrate 12.5 mg 08/22/24 09:00 Metoprolol Tartrate 25 Mg Tab PO DAILY [facility] Morphine Sulfate 4 mg 08/21/24 10:44 Morphine Sulfate 4 Mg/Ml Syringe IV Q5M PRN Chest Pain Nitroglycerin 0.4 mg 08/21/24 10:44 Nitroglycerin Sl Tabs 0.4 Mg Tab SUBLINGUAL Q5M PRN Chest Pain Nitroglycerin 1 inch 08/21/24 12:00 08/21/24 11:16 Nitroglycerin Oint 1 Inch/Gm Packet TOPICAL 1 inch Q6HR [facility] Administration Intake and Output 08/20/24 08/21/24 08/21/24 22:59 06:59 14:59 Other: Weight 71.668 kg Patient Weight 08/22/24 06:59 Weight 71.668 kg 08/21/24 09:34 08/21/24 09:34
[2024-08-21] MEDS: HEPARIN SOD,PORK IN 0.45% NACL 25,000 UNIT in 0.45% NACL 1 250ML.BAG IV SCH (17:38)
[2024-08-21] MEDS: HEPARIN SODIUM 1,000 UN/ML (10ML VL) IV ONE (17:41)
[2024-08-21] MEDS: ATORVASTATIN 40 MG TAB PO SCH (17:42)
--- NOTE | 2024-08-21 18:24 | CA ---
Transthoracic Echo Report Name: Hernán Rodrigez Age: 48 Gender: M : 1975 Exam Date: 08/21/2024 13:38 Exam Location: [facility] Ht (in): 69 Wt (lb): 158 Ordering Physician: Tomi Moran DO Attending/Referring Phys: Warehouse Sorter Aura Fleming RDCS Procedure CPT: Indications: CP Cardiac Hx: Technical Quality: Good Contrast 1: Total Dose (mL): Contrast 2: Total Dose (mL): MEASUREMENTS (Male / Female) Normal Values 2D ECHO LV Diastolic Diameter PLAX 5.9 cm 4.2 - 5.9 / 3.9 - 5.3 cm LV Systolic Diameter PLAX 3.7 cm IVS Diastolic Thickness 0.9 cm 0.6 - 1.0 / 0.6 - 0.9 cm LVPW Diastolic Thickness 0.9 cm 0.6 - 1.0 / 0.6 - 0.9 cm LV Relative Wall Thickness 0.3 RV Internal Dim ED PLAX 3.5 cm LA Systolic Diameter LX 4.5 cm 3.0 - 4.0 / 2.7 - 3.8 cm LV Diastolic Volume MOD BP 97.1 cm??? 67 - 155 / 56 - 104 cm??? LV Systolic Volume MOD BP 57.2 cm??? 22 - 58 / 19 - 49 cm??? LV Ejection Fraction MOD BP 41.1 % >= 55 % LV Cardiac Index MOD BP 1428.9 cm???/min???m??? LV Diastolic Volume MOD 4C 91.7 cm??? LV Systolic Volume MOD 4C 56.8 cm??? LV Ejection Fraction MOD 4C 38.0 % LV Cardiac Index MOD 4C 1248.7 cm???/min???m??? LV Diastolic Length 4C 6.8 cm LV Systolic Length 4C 6.4 cm LV Diastolic Volume MOD 2C 95.2 cm??? LV Systolic Volume MOD 2C 56.2 cm??? LV Ejection Fraction MOD 2C 40.9 % LV Cardiac Index MOD 2C 1395.7 cm???/min???m??? LV Diastolic Length 2C 6.3 cm LV Systolic Length 2C 6.7 cm LA Volume 76.8 cm??? 18 - 58 / 22 - 52 cm??? LA Volume Index 41.0 cm???/m??? 16 - 28 cm???/m??? M-MODE Aortic Root Diameter MM 3.2 cm DOPPLER MV Area PHT 2.4 cm??? Mitral E Point Velocity 61.5 cm/s Mitral A Point Velocity 59.4 cm/s Mitral E to A Ratio 1.0 MV Deceleration Time 312.5 ms FINDINGS Left Ventricle Left ventricular ejection fraction is estimated at 50-55 %. Left ventricular cavity size normal. Left ventricular wall thickness normal. Left ventricular systolic function borderline normal Right Ventricle Mild right ventricular dilatation. Unable to estimate the right ventricular systolic pressure. Right Atrium Normal right atrial size. No right atrial thrombus or mass seen. Left Atrium Mildly increased left atrial diameter. Moderately increased left atrial volume. No left atrial thrombus or mass present. Mitral Valve Bileaflet prolapse. Thickened mitral valve leaflets. Moderate central mitral regurgitation Aortic Valve Trileaflet aortic valve. No aortic valve stenosis or regurgitation. Tricuspid Valve Structurally normal tricuspid valve. No tricuspid stenosis, regurgitation or prolapse. Pulmonic Valve Structurally normal pulmonic valve. No pulmonic regurgitation. Pericardium No pericardial effusion. Aorta Normal size aortic root and proximal ascending aorta. CONCLUSIONS 1 normal left ventricular size with borderline systolic function 2. Bileaflet prolapse of the mitral valve with moderate central regurgitation Previewed by: Dr. Katie Nicole MD (Electronically Signed) Final Date: 21 August 2024 18:23
[2024-08-21] MEDS: MORPHINE SULFATE 4 MG/ML SYRINGE IV PRN (20:07)
[2024-08-22] MEDS: HEPARIN SODIUM 1,000 UN/ML (10ML VL) IV PRN (01:48)
[2024-08-22 08:03] LABS: INR 0.9 (<1.2); Prothrombin Time 10.6 sec (10.0-12.5)
[2024-08-22] MEDS: ASPIRIN 325 MG TAB PO SCH (08:12)
[2024-08-22] MEDS ORDERED: METOPROLOL TARTRATE 25 MG TAB PO SCH (09:00)
[2024-08-22] MEDS: METOPROLOL SUCCINATE (ER) 25 MG TAB.ER.24H PO SCH (09:55)
[2024-08-22] MEDS: IV FLUID CONTINUATION 900 ML IV ONE (10:31)
--- NOTE | 2024-08-22 10:31 | P.PN ---
Subjective Progress Note Date: 08/22/24 This is a 48-year-old male with past medical history of hypertension, tobacco use and dependence We have been asked to evaluate the patient for chest pain. Patient states that he developed chest pain in the middle of his chest with no radiation. He denies shortness of breath, palpitations, dizziness or syncopal episodes. Is been going on and off for the past 3 days and last for only a brief amount of time when it occurs. He states he currently has the pain is in the front of his chest and in the back as well. He states is just sitting there. Is not worse with deep breathing. He also gives history that he is under treatment for bronchitis and received prescriptions from his PCP for this. He states he is normally quite active at work. He is a active smoker. Blood pressure 122/65, heart rate 75, pulse ox 90% on room air. Patient has been started on Nitropaste, aspirin. -EKG: Sinus rhythm with no acute ST-T wave changes. -Chest x-ray: No acute process. -CTA of the thorax and abdomen: No aortic dissection or acute process within the chest or abdomen. Aortic root aneurysm dilatation measuring 4 cm. Mild emphysematous changes. -Laboratory studies: WBC 12.6, BUN 16 creatinine 0.92, potassium 4.4. Troponin negative x 2. proBNP 1340. Cepheid viral panel not detected. -Home cardiac medications: Metoprolol tartrate 12.5 mg daily which she has not taken since August 13. -Echocardiogram performed 10/17/2022 revealed normal left ventricular size and systolic function. Mild mitral and tricuspid regurgitation. -Cardiac catheterization performed 10/16/[address] Watkins revealed normal coronary arteries, normal left-sided filling pressures, EF 55% without wall motion abnormalities. Progress note Patient had chest pain which he describes as substernal nonradiating yesterday. He had a troponin assay which showed uptrending pattern. For this a stress test was canceled and he was scheduled for a heart catheterization procedure. Physical examination: Gen: This is a 48-year-old male in no acute distress VS: reviewed HEENT: Head is atraumatic, normocephalic. Pupils equal, round. Sclerae is anicteric. NECK: Supple. No JVD. LUNGS: Clear to auscultation. No wheezes or rhonchi. No intercostal retractions. HEART: Regular rate and rhythm. No murmur. ABDOMEN: Soft No tenderness. EXTREMITIES: No pedal edema. No calf tenderness. NEUROLOGICAL: Patient is awake, alert and oriented x3. Assessment: Atypical chest pain Hypertension History of previous cardiac workup with a normal cardiac cath Tobacco use and dependence Marijuana smoker alcohol use Cardiac testing Echocardiogram shows an EF of 50 to 55%, bileaflet prolapse of mitral valve with moderate central mitral regurgitation. Plan: Aspirin, Lipitor, metoprolol succinate 25 mg twice daily, nitroglycerin patch Plan for cardiac catheterization Further recommendations to follow Considering the amount of troponin elevation, would like to repeat echocardiogram in near future to evaluate for mitral regurgitation, again consider KETURAH on outpatient basis Objective - Vital Signs Vital signs: Vital Signs Temp 97.6 F 08/22/24 03:26 Pulse 105 H 08/22/24 08:00 Resp 16 08/22/24 08:00 BP 143/78 08/22/24 08:00 Pulse Ox 97 08/22/24 08:00 FiO2 Intake & Output 08/21/24 08/22/24 08/22/24 18:59 06:59 18:59 Intake Total 240 69.517 Balance 240 69.517 Weight 71.668 kg Intake: Intake, IV Titration 69.517 Amount Heparin Sod,Pork in 0.45% 69.517 NaCl 25,000 unit In 0.45 % NaCl 1 250ml.bag @ 12 UNITS/KG/HR 8.6 mls/hr IV .Q24H [facility] Rx#:[id number] Oral 240 Other: Voiding Method Toilet # Voids 3 - Labs CBC & Chem 7: 08/21/24 09:34 08/21/24 09:34 Labs: Abnormal Lab Results - Last 24 Hours (Table) 08/21/24 08/21/24 08/22/24 Range/Units 14:35 23:26 07:06 APTT 36.4 H 43.0 H (22.0-30.0) sec Troponin I 0.489 H* (0.000-0.034) ng/mL 08/22/24 Range/Units 09:23 APTT (22.0-30.0) sec Troponin I 9.300 H* (0.000-0.034) ng/mL
[2024-08-22] MEDS ORDERED: ALPRAZolam 0.25 MG TAB PO PRN (10:39)
[2024-08-22] MEDS: HEPARIN SODIUM,PORCINE (1 ML) 2,500 UNIT in SODIUM CHLORIDE 0.9% 250 ML IRRIGATION PRN (10:53)
[2024-08-22] MEDS: HEPARIN SODIUM,PORCINE 10,000 UNIT in SODIUM CHLORIDE 0.9% 1,000 ML IRRIGATION PRN (10:53)
[2024-08-22] MEDS: SODIUM CHLORIDE 0.9% 1,000 ML in EMPTY BAG 1 BAG IV SCH (11:00)
[2024-08-22] MEDS: VERAPAMIL SYRINGE (5 MG/10 ML) INTRAARTER ONE (11:10)
[2024-08-22] MEDS: LIDOCAINE 1% INJ 10MG/ML (20 ML MDV) SQ ONE (11:10)
[2024-08-22] MEDS: fentaNYL (PF) 50 MCG/1 ML VIAL IVP ONE (11:10)
[2024-08-22] MEDS: MIDAZOLAM 2 MG/2 ML VIAL IVP ONE (11:10)
[2024-08-22] MEDS: HEPARIN SODIUM 1,000 UN/ML (10ML VL) IVP ONE (11:15)
[2024-08-22] MEDS: IOPAMIDOL-370 100ML BTL INJ ONE (11:25)
[2024-08-22 11:45] LABS: Chol/HDL Ratio 2.64 Ratio; VLDL Calculation 15.76 mg/dL (5.00-40.00)
--- NOTE | 2024-08-22 11:56 | P.CARDCATH ---
Description of Procedure: PROCEDURES PERFORMED: Left heart catheterization, bilateral coronary angiography, ultrasound guided arterial access, left ventriculogram INDICATION: NSTEMI CONSENT:The risks, benefits and alternative therapies for the above-mentioned procedure and for both sedation/analgesia as well as necessary blood product administration, if indicated, as they pertain to this patient were discussed with the patient. The patient has indicated understanding and acceptance of the risks and procedures discussed. PROCEDURE: After the risks, benefits and alternatives of the above mentioned procedure explained in detail with the patient, informed consent was obtained. Patient was taken to the catheterization lab and prepped and draped in usual fashion. Ultrasound guidance was used to assess for arterial access. 1% lidocaine was used to anesthetize the right radial artery. A 6-Jamaican sheath was placed in the right radial artery using modified Seldinger technique and ultrasound guidance. Left coronary angiography was performed with a 5-Jamaican JL 3.5 catheter and right coronary angiography was performed with a 5-Jamaican FR5 catheter in various views. A 5-Jamaican FR5 catheter was inserted into the left ventricle and pressure measurements were obtained. A left ventriculogram was performed in the MATA projection with power injection. The right radial sheath was removed and a TR band was placed with hemostasis achieved. The patient tolerated the procedure well. Patient was transported back to the post catheterization holding area in stable condition. Conscious Sedation: Patient was monitored under the direct supervision of myself for conscious sedation using Versed and fentanyl for a total duration of 14 minutes HEMODYNAMICS: Ao: 129/78 LV: 126/2, LVEDP 11 SELECTIVE CORONARY ARTERIOGRAPHY: LEFT MAIN: The left main is a large caliber vessel which bifurcates into the LAD and circumflex. There is no significant stenosis. LEFT ANTERIOR DESCENDING CORONARY ARTERY: LAD is a large caliber vessel which wraps around to the apex. There is no significant stenosis. LEFT CIRCUMFLEX CORONARY ARTERY: Left circumflex is a moderate caliber vessel without significant stenosis. RIGHT CORONARY ARTERY: The right coronary artery is a large caliber vessel which gives off a PDA and PLV branch and is the dominant vessel. There is no significant stenosis. LEFT VENTRICULOGRAM: Left ventricular EF 50-55% with mid inferior hypokinesis FINAL IMPRESSION: 1. Normal coronary arteries as described above. 2. Normal left sided filling pressures 3. LV EF 50-55% with mid inferior hypokinesis may be consistent with myocarditis PLAN: 1. Aggressive risk factor modification per most recent ACC/AHA guidelines. 2. Consider cardiac MRI to evaluate for myocarditis
--- NOTE | 2024-08-22 22:17 | HP ---
HISTORY AND PHYSICAL CHIEF COMPLAINT: Chest pain. HISTORY OF PRESENT ILLNESS: This gentleman presented to the emergency room with chest pain. His blood pressure was also slightly low as was his pulse. Troponins were negative. REVIEW OF SYSTEMS: He denied any focal neurologic deficits, syncope, nausea, vomiting, etc. Past medical history, family history, and personal and social histories reveal that he is not allergic to any medication. MEDICATIONS: He is on, 1. Metoprolol. 2. Xanax. 3. Atorvastatin. Past medical history, family history, personal and social histories reveal that he is a smoker. He drinks alcohol occasionally. PHYSICAL EXAMINATION: VITAL SIGNS: Blood pressure 105/62 with a pulse of 70. He is afebrile. GENERAL: He appeared to be well developed, well nourished, in no acute distress. Skin color is normal. Skin is warm, dry. LYMPHATICS: Lymph nodes are not enlarged. HEAD, EARS, EYES, NOSE, MOUTH, AND THROAT: Normal. NECK: Neck veins are not distended. Thyroid not enlarged. CHEST: Clear. CARDIAC: Normal. ABDOMEN: Soft, nontender. EXTREMITIES: Normal. NEUROLOGICAL: He is intact. ASSESSMENT: He is admitted to the hospital with diagnoses of, 1. Chest pain. 2. Hypotension. 3. Bradycardia. PLAN: 1. Bed rest. 2. IV fluids. 3. Telemetry. 4. Serial EKGs and enzymes. 5. Cardiology consult. MIGUEL / JANE: [id number] /
--- NOTE | 2024-08-23 08:31 | P.PN ---
Subjective Progress Note Date: 08/23/24 This is a 48-year-old male with past medical history of hypertension, tobacco use and dependence We have been asked to evaluate the patient for chest pain. Patient states that he developed chest pain in the middle of his chest with no radiation. He denies shortness of breath, palpitations, dizziness or syncopal episodes. Is been going on and off for the past 3 days and last for only a brief amount of time when it occurs. He states he currently has the pain is in the front of his chest and in the back as well. He states is just sitting there. Is not worse with deep breathing. He also gives history that he is under treatment for bronchitis and received prescriptions from his PCP for this. He states he is normally quite active at work. He is a active smoker. Blood pressure 122/65, heart rate 75, pulse ox 90% on room air. Patient has been started on Nitropaste, aspirin. -EKG: Sinus rhythm with no acute ST-T wave changes. -Chest x-ray: No acute process. -CTA of the thorax and abdomen: No aortic dissection or acute process within the chest or abdomen. Aortic root aneurysm dilatation measuring 4 cm. Mild emphysematous changes. -Laboratory studies: WBC 12.6, BUN 16 creatinine 0.92, potassium 4.4. Troponin negative x 2. proBNP 1340. Cepheid viral panel not detected. -Home cardiac medications: Metoprolol tartrate 12.5 mg daily which she has not taken since August 13. -Echocardiogram performed 10/17/2022 revealed normal left ventricular size and systolic function. Mild mitral and tricuspid regurgitation. -Cardiac catheterization performed 10/16/[address] Watkins revealed normal coronary arteries, normal left-sided filling pressures, EF 55% without wall motion abnormalities. Progress note Patient had chest pain which he describes as substernal nonradiating yesterday. He had a troponin assay which showed uptrending pattern. For this a stress test was canceled and he was scheduled for a heart catheterization procedure. 08/23/2024 Patient seen and examined at bedside this a.m. Cardiac catheterization yesterday did not show any obstructive coronary artery disease with preserved LVEF on LV gram. Patient did have troponin elevation and chest pain which he attributed to possible myocarditis. Physical examination: Gen: This is a 48-year-old male in no acute distress VS: reviewed HEENT: Head is atraumatic, normocephalic. Pupils equal, round. Sclerae is anicteric. NECK: Supple. No JVD. LUNGS: Clear to auscultation. No wheezes or rhonchi. No intercostal retr actions. HEART: Regular rate and rhythm. No murmur. ABDOMEN: Soft No tenderness. EXTREMITIES: No pedal edema. No calf tenderness. NEUROLOGICAL: Patient is awake, alert and oriented x3. Assessment: Elevated troponin, likely due to myocarditis Hypertension History of previous cardiac workup with a normal cardiac cath Tobacco use and dependence Marijuana smoker alcohol use Moderate central mitral regurgitation Cardiac testing Echocardiogram shows an EF of 50 to 55%, bileaflet prolapse of mitral valve with moderate central mitral regurgitation. Cardiac catheterization did not show any significant obstructive coronary artery disease. Both ESR and CRP were within normal limits. Plan: Aspirin, Lipitor, metoprolol succinate 25 mg twice daily Start losartan 12.5 mg daily At this time patient is cleared to be discharged from cardiovascular standpoint. I recommend outpatient follow-up with primary fireperson for cardiac MRI to evaluate for myocarditis and possible KETURAH for evaluation of moderate central mitral regurgitation. Objective - Vital Signs Vital signs: Vital Signs Temp 98.0 F 08/23/24 04:20 Pulse 57 L 08/23/24 04:20 Resp 16 08/23/24 04:20 BP 113/70 08/23/24 04:20 Pulse Ox 98 08/23/24 00:15 FiO2 Intake & Output 08/22/24 08/23/24 08/23/24 18:59 06:59 18:59 Intake Total 1045 236 Balance 1045 236 Intake: IV 145 Intake, IV Titration 300 Amount Sodium Chloride 0.9% 1, 300 000 ml In Empty Bag 1 bag @ 1 ML/KG/HR 71.668 mls/ hr IV .[id number] [facility] Rx#: [id number] Oral 600 236 Other: Voiding Method Toilet Toilet # Voids 1 - Labs CBC & Chem 7: 08/21/24 09:34 08/21/24 09:34 Labs: Abnormal Lab Results - Last 24 Hours (Table) 08/22/24 Range/Units 09:23 Troponin I 9.300 H* (0.000-0.034) ng/mL
[2024-08-23 08:59] VITALS: BP 124/81; PULSE 66; RESP 17; TEMP 97.9
[2024-08-23] MEDS: ASPIRIN 81 MG PO SCH (08:59)
[2024-08-23] MEDS: LOSARTAN 25 MG TAB PO SCH (08:59)
[2024-08-24] MEDS ORDERED: CLOPIDOGREL 75 MG TAB PO SCH (09:00)
--- NOTE | 2024-08-24 23:53 | DS ---
DISCHARGE SUMMARY CHIEF COMPLAINT: Chest pain. HISTORY OF PRESENT ILLNESS AND PHYSICAL EXAMINATION: Details of this man's history and physical can be found in the initial workup. LABORATORY STUDIES: While he is in the hospital, he had laboratory studies, details of which can be found in the laboratory section of his chart. COURSE IN THE HOSPITAL: After admission, he was placed on bedrest, started intravenous fluids and seen by Cardiology. He was taken for cardiac cath, which apparently demonstrated clear coronary arteries. He was stable and doing well. It was felt that he could be discharged on the and he will be followed up in the office in several days. FINAL DIAGNOSES: 1. Chest pain. 2. [id number] myocardial infarction. 3. Atherosclerotic cardiovascular disease. OPERATIONS: Cardiac cath. CONSULTATION: Cardiology. MIGUEL / JANE: [id number] /
--- NOTE | 2024-08-25 11:38 | PN ---
PROGRESS NOTE DATE OF SERVICE: 08/22/2024 CHIEF COMPLAINT: Chest pain and elevated troponin. HISTORY OF PRESENT ILLNESS: This gentleman is doing well. He is still having some discomfort, but he feels much better. He states that Cardiology is taking him down for a stress test. PHYSICAL EXAMINATION: CHEST: Clear. CARDIAC: Normal. SKIN: Warm and dry. IMPRESSION: Chest pain with elevated troponin. PLAN: A stress test today or tomorrow. MMODL / IJN: [id number] /
== END 2024-08-23 11:02 | disposition home or self-care (01) ==
LOC: EC 09:14 → 6NMEDSUR 11:37 → 3SCARD 17:09
PROVIDERS: ADMIT Family Medicine; ATTEND Family Medicine
DX: I21.4 Non-ST elevation (NSTEMI) myocardial infarction (principal); I25.10 Atherosclerotic heart disease of native coronary artery without angina pectoris; I10 Essential (primary) hypertension; I95.9 Hypotension, unspecified; R00.1 Bradycardia, unspecified; R79.89 Other specified abnormal findings of blood chemistry; I34.0 Nonrheumatic mitral (valve) insufficiency; I25.2 Old myocardial infarction; F12.90 Cannabis use, unspecified, uncomplicated; F10.90 Alcohol use, unspecified, uncomplicated; F17.200 Nicotine dependence, unspecified, uncomplicated; Z79.52 Long term (current) use of systemic steroids; Z79.899 Other long term (current) drug therapy; Z88.0 Allergy status to penicillin
CPT/HCPCS: 96376 ×3; 96374; 96375; 99285; 36415; 94760; 93005; 93306; 93458; 85379; 83880; 80061; 80053; 85652; 83735; 84484 ×2; 85025; 86658; 85610 ×2; 85730 ×2; 86140; 87636; 71046; 71275; 74175; G0378 ×4; J2250; J2270 ×2; J1644 ×5; J2003; Q9967 ×2; J3010